=== PATIENT | female | born 1980 | race Caucasian/White ===

== ENCOUNTER 2019-12-31 07:53 | Outpatient (CLI) | payer OTHER, SELFPAY ==
--- NOTE | ~2019-12-31 | PE_ITS ---
EXAMINATION: PET skull to mid thigh DATE: 12/31/2019 10:32 INDICATION: Hodgkin's lymphoma of lymph nodes of neck. TECHNIQUE: Blood glucose level was 93 mg/dL. 8.987 mCi of 18-fluorodeoxyglucose (18-FDG) was administ ered i.v. Low dose computed tomography (CT) images were acquired from the base of the brain to the pr oximal thighs for attenuation correction and anatomic localization. Automated exposure control was em ployed. Dose-length product (DLP) was 871 mGy-cm. Positron emission tomography (PET) images were acqu ired in the same distribution. COMPARISON: PET CT 07/16/2019, chest CT 09/17/2019 FINDINGS: Head/neck: There is increased activity in the oral cavity, oropharynx, major salivary glands, and kary ttis without CT correlate, likely physiologic. There is a 17 x 13 mm left supraclavicular node withou t increased activity that measured 17 x 14 mm on 09/17/19. Chest: There is no pneumonia or pleural effusion. The heart size is normal. No pericardial effusion. There is lymphadenopathy in the superior mediastinum. Right example, a 3.8 x 2.0 cm jude mass demons trates maximum SUV of 2.5 and previously measured 3.7 x 1.5 cm. Mediastinal blood pool maximum SUV is 2.8. Abdomen/pelvis/proximal thighs: Liver maximum SUV is 3.6. There is diffuse hepatic steatosis. There a re changes of cholecystectomy. The spleen, pancreas, adrenal glands, and kidneys are normal. There ar e no dilated loops of bowel. The appendix is normal. There are no pathologically enlarged lymph nodes . There is no free intraperitoneal fluid. There is no osseous malignancy. IMPRESSION: 1. Mediastinal and left supraclavicular lymphadenopathy, stable in size from 09/17/2019, consistent w ith lymphoma (Deauville score 2). Reviewed, dictated and finalized at location A. [facility] IMPRESSION: 1. Mediastinal and left supraclavicular lymphadenopathy, stable in size from , consistent with lymphoma (Deauville score 2).
[2019-12-31 08:22] LABS: Glucose Point of Care 93 (65-105)
== END 2019-12-31 07:54 | disposition home or self-care (01) ==
LOC: ANHIMG 08:00
PROVIDERS: Visit Provider Internal Medicine Hematology & Oncology
DX: C81.71 Other Hodgkin lymphoma, lymph nodes of head, face, and neck (principal); R59.0 Localized enlarged lymph nodes
CPT/HCPCS: 78815; A9552

== ENCOUNTER 2020-01-07 11:20 | Outpatient (CLI) | payer OTHER, SELFPAY ==
[2020-01-07 11:42] LABS: Basophils Absolute Auto 0.1 K/mm3 (0.0-0.1); Basophils Percent Auto 0.5 % (0.2-1.2); Eosinophils Absolute Auto 0.2 K/mm3 (0-0.3); Eosinophils Percent Auto 1.9 % (0-4.4); Hematocrit 40.6 % (37.0-47.0); Hemoglobin 13.1 g/dL (12.0-15.0); Immature Granulocyte Absolute 0.02 K/mm3 (0.00-0.031); Immature Granulocyte Percent A 0.2 % (0-0.5); Lymphocytes Absolute Auto 2.88 K/mm3 (0.9-3.2); Lymphocytes Percent Auto 30.4 % (18.3-44.2); Mean Corpuscular HGB Conc 32.3 g/dl (32-36); Mean Corpuscular Hemoglobin 30.3 pg (26-34); Mean Corpuscular Volume 93.8 fl (80-100); Mean Platelet Volume 8.6 fl (7.4-10.4); Monocytes Absolute Auto 0.6 K/mm3 (0.1-0.6); Monocytes Percent Auto 6.7 % (2.6-8.5); Neutrophils Absolute Auto 5.7 K/mm3 (1.3-6.7); Neutrophils Percent Auto 60.3 % (45.5-73.1); Platelet Count Result 305 k/mm3 (150-375); Red Blood Count 4.33 M/mm3 (4.2-5.4); Red Cell Distribution Width 14.6 % (11.5-14.5); White Blood Count 9.5 K/mm3 (4.5-10.0)
[2020-01-07 11:46] LABS: Blood Urea Nitrogen 11 mg/dL (8-26); Carbon Dioxide 25 mmol/L (22-30); Chloride 104 mmol/L (98-109); Estimated Glomerular Filt Rate > 60; Glucose 106 mg/dL (70-105); Sodium 139 mmol/L (138-146)
[2020-01-07 16:47] LABS: Alanine Aminotransferase 25 U/L (4-35); Alkaline Phosphatase 107 U/L (38-126); Aspartate Amino Transferase 23 U/L (14-36); Bilirubin,Total 0.3 mg/dL (0.2-1.3); Blood Urea Nitrogen 12 mg/dL (7-17); Calcium 9.3 mg/dL (8.4-10.2); Carbon Dioxide 23 mmol/L (22-30); Chloride 105 mmol/L (98-107); Estimated Glomerular Filt Rate > 60; Glucose 104 mg/dL (65-105); Lactate Dehydrogenase 215 U/L (313-618); Potassium 4.2 mmol/L (3.4-5.0); Sodium 138 mmol/L (137-145)
== END 2020-01-07 11:21 | disposition home or self-care (01) ==
LOC: ANHLAB 11:22
PROVIDERS: Visit Provider Internal Medicine Hematology & Oncology
DX: C81.71 Other Hodgkin lymphoma, lymph nodes of head, face, and neck (principal)
CPT/HCPCS: 36415; 80048; 80053; 83615; 85025

== ENCOUNTER 2020-02-03 20:04 | Emergency (ER) | payer OTHER, SELFPAY ==
[2020-02-03 20:06] VITALS: BP 140/82; PULSE 107; RESP 18; TEMP 36.3; O2SAT 100
--- NOTE | 2020-02-03 20:26 | ED.DIZZY ---
HPI - Dizziness General Chief Complaint: Dizziness Stated Complaint: dizziness, n/v, hot flashes Time Seen by Provider: 02/03/20 20:08 Source: patient Mode of arrival: ambulatory Limitations: no limitations History of Present Illness HPI Narrative: Patient is a 39 year old female who presents to the emergency department with complaints of dizziness that started at 2AM. Patient states that her dizziness feels like the room is spinning and she gets nauseas when she gets out of bed. Patient has been sleeping all day and in bed besides going to the bathroom. She notes that she has Zofran at home but she did not take it. Patient reports a 3/10 rt sided and frontal headache. She has never had this dizziness before. Patient notes that she gets migraines since she started chemo for her Hodgkins Lymphoma. She denies vomiting, cough, cold, fever, or diarrhea. Patient has a history of Hodgkins Lymphoma and her last chemo was a year ago. She smokes 1/2 pack of cigarettes a day. She was only able to have a cigarette today. She denies smoking marijuana or drinking alcohol. Patient denies a chance of She is in the emergency department with her boyfriend. Patient works at [employer]. MD elicited complaint: dizziness Onset (ago): hour(s) (18) Timing: sudden onset Description: room spinning History of similar symptoms: No Exacerbating factors: movement/ambulation Relieving factors: remaining still and sleep Associated symptoms: nausea and other (headache) Related Data Home Medications Medication Instructions Recorded Confirmed aspirin 325 mg PO DAILY 09/17/19 10/04/19 Allergies Allergy/AdvReac Type Severity Reaction Status Date / Time Penicillins Allergy Severe Anaphylaxis Verified 09/17/19 09:51 cefazolin Allergy Intermediate Vomiting Verified 09/17/19 09:51 Review of Systems Review of Systems: All systems reviewed & are unremarkable except as noted in HPI and below Constitutional: Constitutional: Denies fever(s) Respiratory: Respiratory: Denies cough Gastrointestinal: Gastrointestinal: Denies diarrhea, Reports nausea and Denies vomiting Neurologic: Reports dizziness and Reports headache(s) [facility] Past Medical History Medical History Anxiety Arthritis Clavicle fracture GERD (gastroesophageal reflux disease) Hodgkin lymphoma (~03/2019) Kidney stones Right arm fracture Surgical History Surgical History H/O section H/O tubal ligation History of arthroplasty of left knee Hx of cholecystectomy Social History Social History (Updated 02/03/20 @ 20:46 by Angela Allan) Smoking packs per day: 0.5 Smoking cigarettes per day: 10.0 Smoking status: Current every day smoker Alcohol intake: never Substance use: never Living arrangements: with family Occupation/Education: occupation Additional occupation/education comments: [employer] Gender identity (if verbalized by the patient): Female Exam Const: General: healthy appearing Orientation/consciousness: patient oriented x3 (alert) HENMT: Mouth: Yes dry mucous membranes Eyes: EOM: No Nystagmus present Resp: Effort & Inspection: normal respiratory effort Auscultation: clear to auscultation bilaterally and no wheezes Cardio: Rate: regular rate Rhythm: regular rhythm Heart sounds: no murmurs GI: Inspection: normal to inspection GI Palp: No abdominal tenderness Skin: General skin exam: other (hyper pigmentation to face) Neuro: General: patient oriented x3 (alert) Extrem: General: normal to inspection Course Reevaluation(s) Reevaluation #1: Patient is feeling better but she vomited so ice chips are being ordered. Date: 02/03/20 Time: 20:51 Reevaluation #2: Patient is sleeping in the bed. Date: 02/03/20 Time: 21:44 Reevaluation #3: Woke patient up. She is entirely better with 2 liters of fluids. Date: 02/03/20 Time: 22:04 Vit
[2020-02-03] MEDS: SODIUM CHLORIDE 0.9% IV 1,000 ML 999 ML IV CONT ×2 (20:36→21:23)
[2020-02-03] MEDS: METOCLOPRAMIDE HCL INJ 10 MG/2 ML VIAL IV PUSH (20:36)
[2020-02-03 21:28] VITALS: BP 119/87; PULSE 64; RESP 15; O2SAT 100
[2020-02-03 22:44] VITALS: BP 102/65; PULSE 98; RESP 17; TEMP 36.6; O2SAT 100
== END 2020-02-03 22:46 | disposition home or self-care (01) ==
PROVIDERS: Emergency Provider Emergency Medicine
DX: R42 Dizziness and giddiness (principal); R11.10 Vomiting, unspecified; G43.909 Migraine, unspecified, not intractable, without status migrainosus; Z85.71 Personal history of Hodgkin lymphoma; Z92.21 Personal history of antineoplastic chemotherapy; F17.210 Nicotine dependence, cigarettes, uncomplicated; M19.90 Unspecified osteoarthritis, unspecified site; K21.9 Gastro-esophageal reflux disease without esophagitis; Z79.82 Long term (current) use of aspirin
CPT/HCPCS: 96361; 96374; 96375; 99284; J1200; J2765; J7030

== ENCOUNTER 2020-04-15 12:42 | Emergency (ER) | payer OTHER, SELFPAY ==
--- NOTE | ~2020-04-15 | XR_ITS ---
EXAMINATION: XR lumbar spine 2-3V DATE: 04/15/2020 13:46 INDICATION: Low back pain. TECHNIQUE: 3 views of lumbar spine were obtained. COMPARISON: Lumbar spine radiographs 07/17/2014 FINDINGS: There is 4 degrees dextrocurvature of thoracolumbar spine. Vertebral body heights and inter vertebral disc heights are normal. There are endplate osteophytes at L3-L4 and L4-L5. The facet joint s are unremarkable. Surgical clips in the right upper quadrant are likely from cholecystectomy. IMPRESSION: 1. Mild lumbar spondylosis. Reviewed, dictated and finalized at location A. IMPRESSION: 1. Mild lumbar spondylosis.
[2020-04-15 12:56] VITALS: BP 126/80; PULSE 102; RESP 20; TEMP 36.5; O2SAT 99
--- NOTE | 2020-04-15 13:21 | ED.BACK ---
HPI - Back Pain/Injury General Chief Complaint: Back Pain/Injury Stated Complaint: LBP X1D Time Seen by Provider: 04/15/20 12:57 Source: patient Mode of arrival: ambulatory Limitations: no limitations History of Present Illness HPI Narrative: This is a 39-year-old female that presents the emergency department for low back pain since injury yesterday. Reports she was lifting something heavy and felt a pop in her back. Reports since she has had right-sided low back pain. Worse with movement and relieved with rest. Reports she takes a Flexeril last night with little relief. Denies saddle anesthesia, or bowel/bladder incontinence. Related Data Home Medications Medication Instructions Recorded Confirmed aspirin 325 mg PO DAILY 09/17/19 10/04/19 Allergies Allergy/AdvReac Type Severity Reaction Status Date / Time Penicillins Allergy Severe Anaphylaxis Verified 04/15/20 13:01 cefazolin Allergy Intermediate Vomiting Verified 04/15/20 13:01 Review of Systems Review of Systems: Narrative: CONSTITUTIONAL: Denies fever MUSCULOSKELETAL: Reports back pain, joint pain, and myalgia. NEUROLOGIC: Denies numbness, or weakness. All systems reviewed & are unremarkable except as noted in HPI and below PMFSH Social History Social History (Updated 02/03/20 @ 20:46 by Angela Allan) Smoking packs per day: 0.5 Smoking cigarettes per day: 10.0 Smoking status: Current every day smoker Alcohol intake: never Substance use: never Additional occupation/education comments: [employer] Gender identity (if verbalized by the patient): Male Exam Narrative: Exam Narrative: GENERAL: Well-appearing, well-nourished, and in no acute distress. HEAD: Normocephalic, atraumatic. EYES: EOMI. CHEST: Clear to auscultation. No respiratory distress. No wheezes rales or rhonchi HEART: Regular rate and rhythm. No murmur heard. Normal peripheral pulses. BACK: No midline spinal tenderness. Tender to palpation of the right paraspinal lumbar musculature EXTREMITIES: Normal range of motion. No edema. Strength equal in bilateral lower extremities (5/5). Normal patellar reflexes bilaterally SKIN: Warm, dry, no rash. NEURO: No focal deficits. Alert and oriented x3. Normal gait PSYCH: Normal mood and affect Course Vital Signs Vital signs: Vital Signs Temperature 97.7 F 04/15/20 12:56 Pulse Rate 102 H 04/15/20 12:56 Respiratory Rate 20 04/15/20 12:56 Blood Pressure 126/80 04/15/20 12:56 Pulse Oximetry 99 04/15/20 12:56 Temperature 97.7 F 04/15/20 12:56 Pulse Rate 102 H 04/15/20 12:56 Respiratory Rate 20 04/15/20 12:56 Blood Pressure 126/80 04/15/20 12:56 Pulse Oximetry 99 04/15/20 12:56 MDM - Back Pain/Injury MDM Narrative Medical decision making narrative: Patient presents the emergency department for low back pain after an injury yesterday. She is afebrile and nontoxic-appearing. Patient is neurologically intact. No midline spinal tenderness. X-ray of the lumbar spine shows mild lumbar spondylosis. Patient updated on case findings. She was given a dose of Tylenol and Valium with improvement. Patient was instructed on care of muscle strain. She is to follow-up with primary care doctor. She was given warnings to return to the ER Imaging Data Radiologist's impression: ITS Impressions Lumbar Spine X-Ray 04/15/20 13:47 IMPRESSION: 1. Mild lumbar spondylosis. Critical Care Time Critical Care Time Critical Care Time: No Discharge Plan Discharge Clinical Impression: Strain of lumbar region Qualifiers: Encounter type: initial encounter Qualified Code(s): S39.012A - Strain of muscle, fascia and tendon of lower back, initial encounter Patient Disposition: Home, Self-Care Condition: Stable Instructions: Back Pain (ED) Additional Instructions: Return to the ER if you experience weakness, numbness, bowel/bladder incontinence, or any other symptoms that are concerning to
[2020-04-15] MEDS: ACETAMINOPHEN 500 MG TABLET 1000 MG PO (13:50)
== END 2020-04-15 15:50 | disposition home or self-care (01) ==
PROVIDERS: Emergency Provider Emergency Medicine
DX: S39.012A Strain of muscle, fascia and tendon of lower back, initial encounter (principal); F17.210 Nicotine dependence, cigarettes, uncomplicated; X50.0XXA Overexertion from strenuous movement or load, initial encounter; Z79.82 Long term (current) use of aspirin
CPT/HCPCS: 72100; 96372; 99283; A9270; J3360

== ENCOUNTER 2020-08-24 13:17 | Outpatient (CLI) | payer OTHER, SELFPAY ==
[2020-08-24 13:44] LABS: Basophils Percent Auto 0.4 % (0.2-1.2); Eosinophils Absolute Auto 0.1 K/mm3 (0-0.3); Eosinophils Percent Auto 1.3 % (0-4.4); Hematocrit 42.4 % (37.0-47.0); Hemoglobin 13.6 g/dL (12.0-15.0); Immature Granulocyte Absolute 0.03 K/mm3 (0.00-0.031); Immature Granulocyte Percent A 0.3 % (0-0.5); Lymphocytes Absolute Auto 3.27 K/mm3 (0.9-3.2); Lymphocytes Percent Auto 29.9 % (18.3-44.2); Mean Corpuscular HGB Conc 32.1 g/dl (32-36); Mean Corpuscular Hemoglobin 30.3 pg (26-34); Mean Corpuscular Volume 94.4 fl (80-100); Mean Platelet Volume 8.3 fl (7.4-10.4); Monocytes Absolute Auto 0.6 K/mm3 (0.1-0.6); Monocytes Percent Auto 5.4 % (2.6-8.5); Neutrophils Absolute Auto 6.9 K/mm3 (1.3-6.7); Neutrophils Percent Auto 62.7 % (45.5-73.1); Platelet Count Result 323 k/mm3 (150-375); Red Blood Count 4.49 M/mm3 (4.2-5.4); Red Cell Distribution Width 13.6 % (11.5-14.5); White Blood Count 10.9 K/mm3 (4.5-10.0)
[2020-08-24 13:48] LABS: Blood Urea Nitrogen 11 mg/dL (8-26); Carbon Dioxide 25 mmol/L (22-30); Chloride 101 mmol/L (98-109); Estimated Glomerular Filt Rate > 60; Glucose 101 mg/dL (70-105); Potassium 3.8 mmol/L (3.5-4.9); Sodium 139 mmol/L (138-146)
[2020-08-24 15:30] LABS: Alanine Aminotransferase 18 U/L (4-35); Alkaline Phosphatase 110 U/L (38-126); Anion Gap 9 mmol/L (8-16); Aspartate Amino Transferase 18 U/L (14-36); Bilirubin,Total 0.3 mg/dL (0.2-1.3); Blood Urea Nitrogen 12 mg/dL (7-17); Calcium 9.7 mg/dL (8.4-10.2); Carbon Dioxide 28 mmol/L (22-30); Chloride 101 mmol/L (98-107); Estimated Glomerular Filt Rate > 60; Glucose 103 mg/dL (65-105); Sodium 138 mmol/L (137-145)
[2020-08-24 16:32] LABS: Lactate Dehydrogenase < 200 U/L (313-618)
== END 2020-08-24 13:18 | disposition home or self-care (01) ==
LOC: ANHLAB 13:18
PROVIDERS: Visit Provider Internal Medicine Hematology & Oncology
DX: C81.71 Other Hodgkin lymphoma, lymph nodes of head, face, and neck (principal)
CPT/HCPCS: 36415; 80048; 80053; 83615; 85025

== ENCOUNTER 2020-09-07 17:22 | Emergency (ER) | payer OTHER, SELFPAY ==
--- NOTE | 2020-09-07 17:24 | ED.GENADULT ---
HPI - General Adult General Chief complaint: Skin/Abscess/Foreign Body Stated complaint: Bee Sting Time Seen by Provider: 09/07/20 17:24 Source: patient Mode of arrival: ambulatory Limitations: no limitations History of Present Illness HPI narrative: 39-year-old female patient presents to the [facility] with complaints of a bee sting to the right wrist. Patient states it happened earlier today. Patient states she did take Benadryl but states is still very tender, warm to the touch and is painful with movement to the wrist. Patient recently just finished chemo at the end of July for non-Hodgkin's lymphoma. Related Data Home Medications Medication Instructions Recorded Confirmed aspirin 325 mg PO DAILY 09/17/19 09/07/20 Allergies Allergy/AdvReac Type Severity Reaction Status Date / Time Penicillins Allergy Severe Anaphylaxis Verified 04/15/20 13:01 cefazolin Allergy Intermediate Vomiting Verified 04/15/20 13:01 clindamycin Allergy Anaphylaxis Verified 09/07/20 17:39 Review of Systems Review of Systems: Narrative: CONSTITUTIONAL: Denies fever, chills, or sweats. EYES: Denies visual changes, redness, or discharge. ENT: Denies rhinorrhea, congestion, sore throat, or otalgia. CARDIOVASCULAR: Denies chest pain, palpitations, or edema. RESPIRATORY: Denies cough or dyspnea. GASTROINTESTINAL: Denies abdominal pain, nausea, vomiting, or diarrhea. GENITOURINARY: Denies dysuria or hematuria. SKIN: Denies rash or itching. Positive bee sting to right wrist MUSCULOSKELETAL: Denies back pain, joint pain, or myalgia. NEUROLOGIC: Denies headache, numbness, or weakness. PSYCHIATRIC: Denies anxiety or depression. [facility] Past Medical History Medical History (Updated 09/07/20 @ 17:54 by JOVANNA Bullard) Anxiety Arthritis Clavicle fracture GERD (gastroesophageal reflux disease) Hodgkin lymphoma (~03/2019) Kidney stones Right arm fracture Surgical History Surgical History H/O section H/O tubal ligation History of arthroplasty of left knee Hx of cholecystectomy Family History Family History Other Cerebrovascular accident Diabetes mellitus Family history of alcoholism Family history of arthritis Family history of cardiovascular disease Family history of elevated blood lipids Family history of malignant neoplasm of male breast Family history of malignant neoplasm of ovary Hypertension Social History Social History Smoking packs per day: 0.5 Smoking cigarettes per day: 10.0 Smoking status: Current every day smoker Alcohol intake: never Substance use: never Additional occupation/education comments: [employer] Gender identity (if verbalized by the patient): Male Comments At the time of my signature I agree with nursing past medical history, surgical, social, and family history. There is no relevant family history pertinent to the presenting complaint. Exam Narrative: Exam Narrative: GENERAL: Well-appearing, well-nourished, and in no acute distress. HEAD: Normocephalic, atraumatic. EYES: PERRLA and EOMI. ENT: Nares clear, no rhinorrhea or epistaxis. Mucous membranes moist. NECK: Supple. No lymphadenopathy CHEST: Clear to auscultation. No respiratory distress. HEART: Regular rate and rhythm. No murmur heard. Normal peripheral pulses. ABDOMEN: Soft, nontender, nondistended, normal active bowel sounds. EXTREMITIES: Normal range of motion. No edema. SKIN: Warm, dry, no rash. Patient has approximately 7 cm reddened area to the ulnar side of the right breast with erythema, swelling and warmth to the touch. No open wounds or discharge noted. NEURO: No focal deficits. Alert and oriented x3. Course Vital Signs Vital signs: Vital Signs Temperature 37.1 C 09/07/20 17:32 Pulse Rate 112 H 09/07/20 17:32 Respiratory Rate
[2020-09-07 17:32] VITALS: BP 115/81; PULSE 112; RESP 18; TEMP 37.1; O2SAT 99
[2020-09-07 17:34] VITALS: BP 115/81; PULSE 112; RESP 18; TEMP 37.1; O2SAT 99
== END 2020-09-07 18:01 | disposition home or self-care (01) ==
PROVIDERS: Emergency Provider Nurse Practitioner Family
DX: L03.113 Cellulitis of right upper limb (principal); F17.210 Nicotine dependence, cigarettes, uncomplicated; F41.9 Anxiety disorder, unspecified; M19.90 Unspecified osteoarthritis, unspecified site; K21.9 Gastro-esophageal reflux disease without esophagitis; C85.90 Non-Hodgkin lymphoma, unspecified, unspecified site
CPT/HCPCS: 99213; G0463

== ENCOUNTER 2020-12-18 16:18 | Outpatient (CLI) | payer OTHER, SELFPAY ==
[2020-12-18 16:49] LABS: Basophils Percent Auto 0.4 % (0.2-1.2); Eosinophils Absolute Auto 0.1 K/mm3 (0-0.3); Eosinophils Percent Auto 1.5 % (0-4.4); Hematocrit 40.2 % (37.0-47.0); Immature Granulocyte Absolute 0.02 K/mm3 (0.00-0.031); Immature Granulocyte Percent A 0.2 % (0-0.5); Lymphocytes Absolute Auto 2.96 K/mm3 (0.9-3.2); Mean Corpuscular HGB Conc 32.3 g/dl (32-36); Mean Corpuscular Hemoglobin 30.1 pg (26-34); Mean Corpuscular Volume 93.1 fl (80-100); Mean Platelet Volume 8.4 fl (7.4-10.4); Monocytes Absolute Auto 0.5 K/mm3 (0.1-0.6); Monocytes Percent Auto 5.5 % (2.6-8.5); Neutrophils Absolute Auto 5.9 K/mm3 (1.3-6.7); Neutrophils Percent Auto 61.4 % (45.5-73.1); Platelet Count Result 289 k/mm3 (150-375); Red Blood Count 4.32 M/mm3 (4.2-5.4); Red Cell Distribution Width 13.5 % (11.5-14.5); White Blood Count 9.6 K/mm3 (4.5-10.0)
[2020-12-18 17:03] LABS: Alanine Aminotransferase 24 U/L (4-35); Albumin Level 3.9 g/dL (3.5-5.1); Alkaline Phosphatase 94 U/L (38-126); Anion Gap 5 mmol/L (8-16); Aspartate Amino Transferase 20 U/L (14-36); Bilirubin,Total 0.2 mg/dL (0.2-1.3); Blood Urea Nitrogen 8 mg/dL (7-17); Carbon Dioxide 27 mmol/L (22-30); Chloride 106 mmol/L (98-107); Estimated Glomerular Filt Rate > 60; Glucose 108 mg/dL (65-105); Potassium 3.7 mmol/L (3.4-5.0); Sodium 138 mmol/L (137-145)
[2020-12-23 06:15] LABS: LH 21.7 mIU/mL (***)
== END 2020-12-18 16:19 | disposition home or self-care (01) ==
LOC: ANHLAB 16:20
PROVIDERS: Visit Provider Internal Medicine Hematology & Oncology
DX: C81.71 Other Hodgkin lymphoma, lymph nodes of head, face, and neck (principal)
CPT/HCPCS: 36415; 80053; 83002; 85025

== ENCOUNTER 2021-02-04 14:17 | Outpatient (CLI) | payer OTHER, SELFPAY ==
[2021-02-04 14:34] LABS: Basophils Absolute Auto 0.1 K/mm3 (0.0-0.1); Basophils Percent Auto 0.6 % (0.2-1.2); Eosinophils Absolute Auto 0.2 K/mm3 (0-0.3); Eosinophils Percent Auto 1.7 % (0-4.4); Hematocrit 41.6 % (37.0-47.0); Hemoglobin 13.4 g/dL (12.0-15.0); Immature Granulocyte Absolute 0.02 K/mm3 (0.00-0.031); Immature Granulocyte Percent A 0.2 % (0-0.5); Lymphocytes Absolute Auto 3.58 K/mm3 (0.9-3.2); Lymphocytes Percent Auto 36.5 % (18.3-44.2); Mean Corpuscular HGB Conc 32.2 g/dl (32-36); Mean Corpuscular Hemoglobin 29.7 pg (26-34); Mean Corpuscular Volume 92.2 fl (80-100); Mean Platelet Volume 8.4 fl (7.4-10.4); Monocytes Absolute Auto 0.6 K/mm3 (0.1-0.6); Monocytes Percent Auto 6.5 % (2.6-8.5); Neutrophils Absolute Auto 5.4 K/mm3 (1.3-6.7); Neutrophils Percent Auto 54.5 % (45.5-73.1); Platelet Count Result 321 k/mm3 (150-375); Red Blood Count 4.51 M/mm3 (4.2-5.4); White Blood Count 9.8 K/mm3 (4.5-10.0)
[2021-02-04 14:39] LABS: Atypical Lymphocytes Present; Platelet Estimate Adequate (Adequate)
[2021-02-04 15:02] LABS: Alanine Aminotransferase 19 U/L (4-35); Albumin Level 4.1 g/dL (3.5-5.1); Alkaline Phosphatase 96 U/L (38-126); Anion Gap 8 mmol/L (8-16); Aspartate Amino Transferase 18 U/L (14-36); Bilirubin,Total 0.2 mg/dL (0.2-1.3); Blood Urea Nitrogen 9 mg/dL (7-17); Calcium 9.1 mg/dL (8.4-10.2); Carbon Dioxide 26 mmol/L (22-30); Chloride 105 mmol/L (98-107); Estimated Glomerular Filt Rate > 60; Glucose 85 mg/dL (65-105); Potassium 3.9 mmol/L (3.4-5.0); Sodium 139 mmol/L (137-145)
[2021-02-04 15:08] LABS: D Dimer 0.33 ug/mL (<0.48)
[2021-02-04 15:39] LABS: Lactate Dehydrogenase < 200 U/L (313-618)
== END 2021-02-04 14:18 | disposition home or self-care (01) ==
LOC: ANHLAB 14:19
PROVIDERS: Visit Provider Internal Medicine Hematology & Oncology
DX: C81.71 Other Hodgkin lymphoma, lymph nodes of head, face, and neck (principal)
CPT/HCPCS: 36415; 80053; 83615; 85025; 85380

== ENCOUNTER 2021-02-08 14:13 | Outpatient (CLI) | payer OTHER, SELFPAY ==
--- NOTE | ~2021-02-08 | CT_ITS ---
EXAMINATION: CT soft tissue neck w con DATE: 02/08/2021 14:48 INDICATION: Hodgkin's lymphoma. TECHNIQUE: Computed tomography (CT) of the neck was performed with 100 mL Omnipaque-350 intravenous c ontrast. Automated exposure control and iterative reconstruction technique were employed. The dose-le ngth product was 499.55 mGy-cm. COMPARISON: PET CT 12/31/2019 FINDINGS: There are enlarged mediastinal and left supraclavicular lymph nodes. For example, a 14 x 11 mm left supraclavicular lymph node previously measured 18 x 13 mm. A 17 x 15 mm prevascular node pre viously measured 22 x 19 mm. The cervical carotid arteries are normal. The paranasal sinuses are ben r. The mastoid air cells are normal. There is mild cervical spondylosis. IMPRESSION: 1. Mediastinal and left supraclavicular lymphadenopathy with interval improvement, consistent with ly mphoma. Reviewed, dictated and finalized at location A. IMPRESSION: 1. Mediastinal and left supraclavicular lymphadenopathy with interval improveme nt, consistent with lymphoma.
--- NOTE | ~2021-02-08 | CT_ITS ---
EXAMINATION: CTA chest PE protocol DATE: 02/08/2021 14:47 INDICATION: Shortness of breath. Hodgkin's lymphoma. TECHNIQUE: Computed tomography angiography (CTA) of the chest was performed with 100 mL Omnipaque-350 intravenous contrast timed to evaluate the pulmonary arteries. Coronal maximum intensity projection 3D-reconstructions were created by the technologist. Automated exposure control and iterative reconst ruction technique were employed. Exam dose: 532.19 mGy-cm total exam DLP. COMPARISON: None. FINDINGS: There is limited opacification of the pulmonary arteries. No apparent central pulmonary emb olism is identified. No thoracic aortic aneurysm or dissection. Normal heart size. Up to 1.5 x 2 cm left superior mediastinal lymphadenopathy. The lungs are clear of infiltrate or consolidation. No suspicious pulmonary mass lesion. Small sliding hiatal hernia. Status post cholecystectomy. IMPRESSION: Mild left superior mediastinal lymphadenopathy No central pulmonary embolism identified, but less than optimal contrast opacification of pulmonary a rteries. Reviewed, dictated and finalized at Location A. Reviewed, dictated and finalized at location A. IMPRESSION: Mild left superior mediastinal lymphadenopathy No central pulmonary embolism identified, but less than optimal contrast opacif ication of pulmonary arteries.
== END 2021-02-08 14:14 | disposition home or self-care (01) ==
PROVIDERS: Visit Provider Internal Medicine Hematology & Oncology
DX: R06.02 Shortness of breath (principal); C81.71 Other Hodgkin lymphoma, lymph nodes of head, face, and neck
CPT/HCPCS: 70491; 71275; Q9967

== ENCOUNTER 2021-05-06 15:04 | Outpatient (CLI) | payer OTHER, SELFPAY ==
[2021-05-06 15:18] LABS: Basophils Percent Auto 0.4 % (0.2-1.2); Eosinophils Absolute Auto 0.2 K/mm3 (0-0.3); Eosinophils Percent Auto 1.6 % (0-4.4); Hematocrit 38.9 % (37.0-47.0); Hemoglobin 12.4 g/dL (12.0-15.0); Immature Granulocyte Absolute 0.05 K/mm3 (0.00-0.031); Immature Granulocyte Percent A 0.5 % (0-0.5); Lymphocytes Percent Auto 30.4 % (18.3-44.2); Mean Corpuscular HGB Conc 31.9 g/dl (32-36); Mean Corpuscular Hemoglobin 29.7 pg (26-34); Mean Corpuscular Volume 93.1 fl (80-100); Mean Platelet Volume 8.5 fl (7.4-10.4); Monocytes Absolute Auto 0.5 K/mm3 (0.1-0.6); Monocytes Percent Auto 5.2 % (2.6-8.5); Neutrophils Absolute Auto 6.1 K/mm3 (1.3-6.7); Neutrophils Percent Auto 61.9 % (45.5-73.1); Platelet Count Result 281 k/mm3 (150-375); Red Blood Count 4.18 M/mm3 (4.2-5.4); White Blood Count 9.9 K/mm3 (4.5-10.0)
[2021-05-06 15:21] LABS: Blood Urea Nitrogen 9 mg/dL (8-26); Carbon Dioxide 25 mmol/L (22-30); Chloride 103 mmol/L (98-109); Estimated Glomerular Filt Rate > 60; Glucose 114 mg/dL (70-105); Potassium 3.5 mmol/L (3.5-4.9); Sodium 142 mmol/L (138-146)
[2021-05-06 16:38] LABS: Alanine Aminotransferase 27 U/L (4-35); Albumin Level 3.8 g/dL (3.5-5.1); Alkaline Phosphatase 85 U/L (38-126); Anion Gap 11 mmol/L (8-16); Aspartate Amino Transferase 23 U/L (14-36); Bilirubin,Total 0.4 mg/dL (0.2-1.3); Blood Urea Nitrogen 10 mg/dL (7-17); Calcium 9.4 mg/dL (8.4-10.2); Carbon Dioxide 25 mmol/L (22-30); Chloride 103 mmol/L (98-107); Estimated Glomerular Filt Rate > 60; Glucose 105 mg/dL (65-105); Potassium 3.8 mmol/L (3.4-5.0); Sodium 139 mmol/L (137-145)
[2021-05-06 22:34] LABS: Lactate Dehydrogenase < 200 U/L (313-618)
== END 2021-05-06 15:05 | disposition home or self-care (01) ==
LOC: ANHLAB 15:06
PROVIDERS: Visit Provider Internal Medicine Hematology & Oncology
DX: C81.71 Other Hodgkin lymphoma, lymph nodes of head, face, and neck (principal)
CPT/HCPCS: 36415; 80048; 80053; 83615; 85025

== ENCOUNTER 2021-11-15 15:22 | Outpatient (CLI) | payer OTHER, SELFPAY ==
[2021-11-15 15:35] LABS: Basophils Absolute Auto 0.1 K/mm3 (0.0-0.1); Basophils Percent Auto 0.4 % (0.2-1.2); Eosinophils Absolute Auto 0.1 K/mm3 (0-0.3); Eosinophils Percent Auto 1.2 % (0-4.4); Hematocrit 43.1 % (37.0-47.0); Hemoglobin 13.6 g/dL (12.0-15.0); Immature Granulocyte Absolute 0.03 K/mm3 (0.00-0.031); Immature Granulocyte Percent A 0.2 % (0-0.5); Lymphocytes Absolute Auto 3.62 K/mm3 (0.9-3.2); Lymphocytes Percent Auto 29.9 % (18.3-44.2); Mean Corpuscular HGB Conc 31.6 g/dl (32-36); Mean Corpuscular Hemoglobin 30.4 pg (26-34); Mean Corpuscular Volume 96.2 fl (80-100); Mean Platelet Volume 8.7 fl (7.4-10.4); Monocytes Absolute Auto 0.7 K/mm3 (0.1-0.6); Monocytes Percent Auto 5.4 % (2.6-8.5); Neutrophils Absolute Auto 7.6 K/mm3 (1.3-6.7); Neutrophils Percent Auto 62.9 % (45.5-73.1); Platelet Count Result 284 k/mm3 (150-375); Red Blood Count 4.48 M/mm3 (4.2-5.4); Red Cell Distribution Width 13.8 % (11.5-14.5); White Blood Count 12.1 K/mm3 (4.5-10.0)
[2021-11-15 16:50] LABS: Alanine Aminotransferase 27 U/L (4-35); Alkaline Phosphatase 106 U/L (38-126); Anion Gap 9 mmol/L (8-16); Aspartate Amino Transferase 36 U/L (14-36); Bilirubin,Total 0.4 mg/dL (0.2-1.3); Blood Urea Nitrogen 10 mg/dL (7-17); Calcium 9.3 mg/dL (8.4-10.2); Carbon Dioxide 26 mmol/L (22-30); Chloride 101 mmol/L (98-107); Estimated Glomerular Filt Rate > 60; Glucose 116 mg/dL (65-110); Sodium 136 mmol/L (137-145)
== END 2021-11-15 15:23 | disposition home or self-care (01) ==
PROVIDERS: Visit Provider Internal Medicine Hematology & Oncology
DX: C81.11 Nodular sclerosis Hodgkin lymphoma, lymph nodes of head, face, and neck (principal)
CPT/HCPCS: 36415; 80053; 85025

== ENCOUNTER 2022-01-11 19:34 | Emergency (ER) | payer OTHER, SELFPAY ==
--- NOTE | 2022-01-11 19:40 | ED.BACK ---
HPI - Back Pain/Injury General Chief Complaint: Back Pain/Injury Stated Complaint: Back Pain Time Seen by Provider: 01/11/22 19:44 Source: patient Mode of arrival: ambulatory Limitations: no limitations History of Present Illness HPI Narrative: 41-year-old female presents with complaint of left sided mid back pain that started yesterday morning. Patient denies injury. States that she woke up with the pain and is worse with movement and when taking deep breath. Has been applying ice, heat, taking ibuprofen and taken Tylenol back and body. Works at [employer] lifting, pushing, walking for 8 hours a shift. Ambulatory with steady gait. All systems reviewed and negative except as noted above. Related Data Home Medications Medication Instructions Recorded Confirmed aspirin 325 mg PO DAILY 09/17/19 01/11/22 Allergies Allergy/AdvReac Type Severity Reaction Status Date / Time Penicillins Allergy Severe Anaphylaxis Verified 01/11/22 19:45 cefazolin Allergy Intermediate Vomiting Verified 01/11/22 19:45 clindamycin Allergy Anaphylaxis Verified 01/11/22 19:45 Review of Systems Review of Systems: CONSTITUTIONAL: Denies fever, chills, or sweats. EYES: Denies visual changes, redness, or discharge. ENT: Denies rhinorrhea, congestion, sore throat, or otalgia. CARDIOVASCULAR: Denies chest pain, palpitations, or edema. RESPIRATORY: Denies cough or dyspnea. GASTROINTESTINAL: Denies abdominal pain, nausea, vomiting, or diarrhea. GENITOURINARY: Denies dysuria or hematuria. SKIN: Denies rash or itching. MUSCULOSKELETAL: Reports left-sided mid back pain. Worse with movement. NEUROLOGIC: Denies headache, numbness, or weakness. PSYCHIATRIC: Denies anxiety or depression. All other systems reviewed are negative, except as documented in HPI. [facility] Past Medical History Medical History (Updated 01/11/22 @ 19:52 by Venice Vega NP) Anxiety Arthritis Clavicle fracture GERD (gastroesophageal reflux disease) Hodgkin lymphoma (~03/2019) Kidney stones Right arm fracture Surgical History Surgical History H/O section H/O tubal ligation History of arthroplasty of left knee Hx of cholecystectomy Family History Family History Other Cerebrovascular accident Diabetes mellitus Family history of alcoholism Family history of arthritis Family history of cardiovascular disease Family history of elevated blood lipids Family history of malignant neoplasm of male breast Family history of malignant neoplasm of ovary Hypertension Social History Social History Smoking packs per day: 0.5 Smoking cigarettes per day: 10.0 Smoking status: Current every day smoker Alcohol intake: never Substance use: never Additional occupation/education comments: [employer] Gender identity (if verbalized by the patient): Male Comments At time of signature, agree with nursing past medical, surgical, social and family history. There is no relevant family history pertinent to the presenting complaint. Exam Narrative: GENERAL: This is a well-nourished, well-developed patient, in no apparent distress. HEAD: normocephalic, atraumatic. EYES: PERRL. Sclera clear/white. Vision is grossly intact. EARS: External ears normal, auditory canals clear and without drainage, TMs normal without perforation. Hearing grossly intact. NOSE: External nose normal with no obvious nasal discharge, nares without redness, no rhinorrhea. THROAT: Mucous membranes moist, posterior pharynx clear. NECK: Neck supple, non-tender without lymphadenopathy, masses or thyromegaly. CARDIOVASCULAR: Regular rate and rhythm without murmurs, gallops, or rubs. RESPIRATORY: Clear to auscultation. Breath sounds equal bilaterally. No wheezes, rales, or rhonchi. GASTROINTESTINAL: Abdomen soft, non-tender, nondist
[2022-01-11 19:50] VITALS: BP 125/87; PULSE 111; RESP 20; TEMP 36.4; O2SAT 98
[2022-01-11] MEDS: KETOROLAC (*BKC) 60 MG/2 ML VIAL IM (19:50)
== END 2022-01-11 20:00 | disposition home or self-care (01) ==
PROVIDERS: Emergency Provider Nurse Practitioner Family
DX: M54.6 Pain in thoracic spine (principal); M19.90 Unspecified osteoarthritis, unspecified site; F17.210 Nicotine dependence, cigarettes, uncomplicated; K21.9 Gastro-esophageal reflux disease without esophagitis; Z85.71 Personal history of Hodgkin lymphoma
CPT/HCPCS: 96372; 99213; G0463; J1885

== ENCOUNTER 2022-05-25 12:46 | Outpatient (CLI) | payer OTHER, SELFPAY ==
--- NOTE | ~2022-05-25 | CT_ITS ---
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 TECHNIQUE: Computed tomography (CT) of the neck and chest was performed with 75 mL Omnipaque-300 intr avenous contrast. Automated exposure control and iterative reconstruction technique were employed. Th e dose-length product was 876.86 mGy-cm. COMPARISON: None FINDINGS: NECK CT: Thyroid gland is unremarkable. Submandibular and parotid glands are symmetric. There are scattered normal-sized lymph nodes in the neck, no lymphadenopathy. Slight decrease in size of a previously 1.4 x 1.0 cm left supraclavicular lymph node currently measuring 1.4 x 0.8 cm. The largest more cephalad lymph nodes measure up to 7 mm in short axis diameter in the submental region and 8 mm in maximal di ameter at the upper right jugular chain, both which are unchanged. No masses identified. The vascula ture is patent and normal in caliber. Airway is unremarkable. Orbits are unremarkable. Visualized paranasal sinuses and mastoid aircells are well aerated. No osseous abnormalities. CHEST CT: Mild dependent atelectasis in the bilateral lower lobes. No suspicious pulmonary nodules, pneumonia, pulmonary edema or other pulmonary infiltrates. No pleural effusion. Heart size is normal. No pericar dial effusion. Thoracic aorta is normal in caliber with no dissection. Again seen are couple prevascu lar lymph nodes, the larger and more laterally is unchanged continuing to measure 1.7 x 1.5 cm and th e more medial located between the left common carotid and left subclavian arteries is slightly decrea sed in size, currently measuring 1.4 x 1.2 cm and previously 1.7 x 1.2 cm. No other new, enlarging or pathologically enlarged thoracic lymphadenopathy. Small sliding-type hiatal hernia. Diffuse hepatic steatosis. Mild thoracic spondylosis with chronic mild anterior wedging of a few mid thoracic vertebr al bodies. No suspicious lytic or blastic bone lesions. IMPRESSION: 1. No change to slight decrease in size of mild mediastinal and left clavicular lymphadenopathy consi stent with continued response to treatment of reported Hodgkin's lymphoma. Reviewed, dictated and finalized at location A. IMPRESSION: 1. No change to slight decrease in size of mild mediastinal and left clavicular lymphadenopathy consistent with continued response to treatment of reported Ho dgkin's lymphoma.
== END 2022-05-25 12:47 | disposition home or self-care (01) ==
PROVIDERS: Visit Provider Internal Medicine Hematology & Oncology
DX: C81.11 Nodular sclerosis Hodgkin lymphoma, lymph nodes of head, face, and neck (principal)
CPT/HCPCS: 70491; 71260; Q9967

== ENCOUNTER 2022-09-17 13:51 | Emergency (ER) | payer OTHER, SELFPAY ==
[2022-09-17 15:20] VITALS: BP 123/81; PULSE 108; RESP 12; TEMP 36.3; O2SAT 100
--- NOTE | 2022-09-17 15:43 | ED.GENADULT ---
HPI - General Adult General Chief complaint: Skin/Abscess/Foreign Body Stated complaint: lump on sheen Time Seen by Provider: 09/17/22 15:43 Source: patient Mode of arrival: ambulatory Limitations: no limitations History of Present Illness HPI narrative: 32-year-old female patient presents to the [facility] with complaints of a reddened area to the left lower henry that has been there since yesterday. Patient denies any obvious trauma that she is aware of. Denies any sting or bite that she is aware of. Denies any itching to the area. Patient states it is slightly tender to the touch. Patient states she noticed that she has been getting swelling to her legs more often since her chemo and just wanted to come get checked out. Patient does have history of Hodgkin's lymphoma. No longer taking chemo at this time. Patient states she does wear compression stockings at times but not very good at it. Patient states that she does have history of a PE while she was on chemo. Has been off of blood thinner since 2019. Related Data Home Medications Medication Instructions Recorded Confirmed meclizine 25 mg tablet 25 mg PO BID PRN Vertigo 09/17/22 09/17/22 ondansetron 4 mg disintegrating 4 mg PO Q8H PRN Nausea 09/17/22 09/17/22 tablet Allergies Allergy/AdvReac Type Severity Reaction Status Date / Time Penicillins Allergy Severe Anaphylaxis Verified 09/17/22 15:32 cefazolin Allergy Intermediate Vomiting Verified 09/17/22 15:32 clindamycin Allergy Anaphylaxis Verified 09/17/22 15:32 Review of Systems Review of Systems: CONSTITUTIONAL: Denies fever, chills, or sweats. EYES: Denies visual changes, redness, or discharge. ENT: Denies rhinorrhea, congestion, sore throat, or otalgia. CARDIOVASCULAR: Denies chest pain, palpitations, or edema. RESPIRATORY: Denies cough or dyspnea. GASTROINTESTINAL: Denies abdominal pain, nausea, vomiting, or diarrhea. GENITOURINARY: Denies dysuria or hematuria. SKIN: Denies rash or itching. Positive redness left lower leg x1 day MUSCULOSKELETAL: Denies back pain, joint pain, or myalgia. NEUROLOGIC: Denies headache, numbness, or weakness. PSYCHIATRIC: Denies anxiety or depression. [facility] Past Medical History Medical History (Updated 11/19/22 @ 15:57 by JOVANNA Bullard) Anxiety Arthritis Clavicle fracture GERD (gastroesophageal reflux disease) Hodgkin lymphoma (~03/2019) Kidney stones Right arm fracture Surgical History Surgical History H/O section H/O tubal ligation History of arthroplasty of left knee Hx of cholecystectomy Family History Family History Other Cerebrovascular accident Diabetes mellitus Family history of alcoholism Family history of arthritis Family history of cardiovascular disease Family history of elevated blood lipids Family history of malignant neoplasm of male breast Family history of malignant neoplasm of ovary Hypertension Social History Social History Smoking packs per day: 0.5 Smoking cigarettes per day: 10.0 Smoking status: Current every day smoker Alcohol intake: never Substance use: never Additional occupation/education comments: [employer] Gender identity (if verbalized by the patient): Male Comments At the time of my signature I agree with nursing past medical history, surgical, social, and family history. There is no relevant family history pertinent to the presenting complaint. Exam Narrative: GENERAL: Well-appearing, well-nourished, and in no acute distress. HEAD: Normocephalic, atraumatic. EYES: PERRLA and EOMI. ENT: Nares clear, no rhinorrhea or epistaxis. Mucous membranes moist. NECK: Supple. No lymphadenopathy CHEST: Clear to auscultation. No respiratory distress. HEART: Regular rate and rhythm. No murmur heard. Normal peripheral pulses. ABD
== END 2022-09-17 16:05 | disposition home or self-care (01) ==
PROVIDERS: Emergency Provider Nurse Practitioner Family
DX: S80.12XA Contusion of left lower leg, initial encounter (principal); C81.90 Hodgkin lymphoma, unspecified, unspecified site; X58.XXXA Exposure to other specified factors, initial encounter
CPT/HCPCS: 99212; G0463

== ENCOUNTER 2022-09-20 15:32 | Outpatient (CLI) | payer OTHER, SELFPAY ==
[2022-09-20 15:47] LABS: Basophils Percent Auto 0.4 % (0.2-1.2); Eosinophils Absolute Auto 0.1 K/mm3 (0-0.3); Eosinophils Percent Auto 1.2 % (0-4.4); Hematocrit 40.4 % (37.0-47.0); Immature Granulocyte Absolute 0.04 K/mm3 (0.00-0.031); Immature Granulocyte Percent A 0.4 % (0-0.5); Lymphocytes Absolute Auto 3.95 K/mm3 (0.9-3.2); Mean Corpuscular HGB Conc 32.2 g/dl (32-36); Mean Corpuscular Hemoglobin 30.7 pg (26-34); Mean Corpuscular Volume 95.5 fl (80-100); Mean Platelet Volume 8.4 fl (7.4-10.4); Monocytes Absolute Auto 0.6 K/mm3 (0.1-0.6); Monocytes Percent Auto 5.5 % (2.6-8.5); Neutrophils Absolute Auto 6.2 K/mm3 (1.3-6.7); Neutrophils Percent Auto 56.5 % (45.5-73.1); Platelet Count Result 299 k/mm3 (150-375); Red Blood Count 4.23 M/mm3 (4.2-5.4); Red Cell Distribution Width 13.6 % (11.5-14.5)
[2022-09-20 15:53] LABS: Blood Urea Nitrogen 10 mg/dL (8-26); Carbon Dioxide 27 mmol/L (22-30); Chloride 102 mmol/L (98-109); Estimated Glomerular Filt Rate > 60; Glucose 106 mg/dL (70-105); Ionized Calcium (POC) 1.16 mmol/L (1.11-1.31); Potassium 3.9 mmol/L (3.5-4.9); Sodium 139 mmol/L (138-146)
[2022-09-20 16:54] LABS: Alanine Aminotransferase 27 U/L (6-35); Alkaline Phosphatase 104 U/L (38-126); Anion Gap 11 mmol/L (8-16); Aspartate Amino Transferase 27 U/L (14-36); Bilirubin,Total 0.3 mg/dL (0.2-1.3); Blood Urea Nitrogen 11 mg/dL (7-17); Calcium 8.7 mg/dL (8.4-10.2); Carbon Dioxide 25 mmol/L (22-30); Chloride 103 mmol/L (98-107); Estimated Glomerular Filt Rate > 60; Glucose 108 mg/dL (65-110); Lactate Dehydrogenase 107 U/L (120-246); Potassium 3.9 mmol/L (3.4-5.0); Sodium 139 mmol/L (137-145)
== END 2022-09-20 15:33 | disposition home or self-care (01) ==
LOC: ANHLAB 15:33
PROVIDERS: Visit Provider Internal Medicine Hematology & Oncology
DX: C81.11 Nodular sclerosis Hodgkin lymphoma, lymph nodes of head, face, and neck (principal)
CPT/HCPCS: 36415; 80047; 80053; 83615; 85025

== ENCOUNTER 2022-10-13 13:42 | Outpatient (CLI) | payer OTHER, SELFPAY ==
--- NOTE | ~2022-10-13 | US_ITS ---
EXAMINATION: US venous doppler [facility] DATE: 10/13/2022 14:33 INDICATION: Lower limb swelling, pain and erythema TECHNIQUE: Grayscale ultrasound images without and with compression and Doppler ultrasound images of the left lower extremity veins were obtained. COMPARISON: None. FINDINGS: The visualized portions of left common femoral vein, profunda (deep) femoral vein, femoral vein, popl iteal vein, peroneal veins, posterior tibial veins, gastrocnemius vein and greater saphenous vein out flow are patent. Mild subcutaneous edema anterior to the left henry. IMPRESSION: 1. No deep venous thrombosis in the left lower limb. Reviewed, dictated and finalized at location A. IDE COLLECTOR
== END 2022-10-13 13:43 | disposition home or self-care (01) ==
LOC: ANHIMG 13:49
PROVIDERS: Visit Provider Internal Medicine Hematology & Oncology
DX: R60.0 Localized edema (principal)
CPT/HCPCS: 93971

== ENCOUNTER 2022-12-22 15:26 | Outpatient (CLI) | payer OTHER, SELFPAY ==
[2022-12-22 15:47] LABS: Basophils Absolute Auto 0.1 K/mm3 (0.0-0.1); Basophils Percent Auto 0.5 % (0.2-1.2); Eosinophils Absolute Auto 0.2 K/mm3 (0-0.3); Eosinophils Percent Auto 1.6 % (0-4.4); Hematocrit 41.2 % (37.0-47.0); Hemoglobin 13.2 g/dL (12.0-15.0); Immature Granulocyte Absolute 0.03 K/mm3 (0.00-0.031); Immature Granulocyte Percent A 0.3 % (0-0.5); Lymphocytes Absolute Auto 3.66 K/mm3 (0.9-3.2); Mean Corpuscular Hemoglobin 30.3 pg (26-34); Mean Corpuscular Volume 94.7 fl (80-100); Mean Platelet Volume 8.7 fl (7.4-10.4); Monocytes Absolute Auto 0.6 K/mm3 (0.1-0.6); Monocytes Percent Auto 5.7 % (2.6-8.5); Neutrophils Absolute Auto 5.7 K/mm3 (1.3-6.7); Neutrophils Percent Auto 55.9 % (45.5-73.1); Platelet Count Result 289 k/mm3 (150-375); Red Blood Count 4.35 M/mm3 (4.2-5.4); White Blood Count 10.2 K/mm3 (4.5-10.0)
[2022-12-22 15:50] LABS: Blood Urea Nitrogen 9 mg/dL (8-26); Carbon Dioxide 26 mmol/L (22-30); Chloride 103 mmol/L (98-109); Estimated Glomerular Filt Rate > 60; Glucose 107 mg/dL (70-105); Ionized Calcium (POC) 1.15 mmol/L (1.11-1.31); Potassium 3.8 mmol/L (3.5-4.9); Sodium 140 mmol/L (138-146)
[2022-12-23 04:22] LABS: Alanine Aminotransferase 30 U/L (6-35); Albumin Level 4.2 g/dL (3.5-5.1); Alkaline Phosphatase 104 U/L (38-126); Anion Gap 6 mmol/L (8-16); Aspartate Amino Transferase 27 U/L (14-36); Bilirubin,Total 0.3 mg/dL (0.2-1.3); Blood Urea Nitrogen 10 mg/dL (7-17); Calcium 8.7 mg/dL (8.4-10.2); Carbon Dioxide 26 mmol/L (22-30); Chloride 107 mmol/L (98-107); Estimated Glomerular Filt Rate > 60; Glucose 104 mg/dL (65-110); Lactate Dehydrogenase 108 U/L (120-246); Potassium 3.9 mmol/L (3.4-5.0); Sodium 139 mmol/L (137-145)
== END 2022-12-22 15:27 | disposition home or self-care (01) ==
PROVIDERS: Visit Provider Internal Medicine Hematology & Oncology
DX: C81.11 Nodular sclerosis Hodgkin lymphoma, lymph nodes of head, face, and neck (principal)
CPT/HCPCS: 36415; 80047; 80053; 83615; 85025

== ENCOUNTER 2023-01-04 19:25 | Emergency (ER) | payer OTHER, SELFPAY ==
[2023-01-04 19:34] VITALS: BP 132/87; PULSE 103; RESP 16; TEMP 37.2; O2SAT 99
--- NOTE | 2023-01-04 19:36 | ED.WOUNDLAC ---
HPI - Wound/Laceration General Stated Complaint: non healing wound Time Seen by Provider: 01/04/23 19:37 Source: patient Mode of arrival: ambulatory Limitations: no limitations History of Present Illness HPI narrative: 42-year-old female with a history of Hodgkin's lymphoma presented for complaint nonhealing wound to the left lower leg. She endorses she had a skin biopsy on 12/22/2022. Since then she has had purulent drainage with foul odor, worsening redness and tenderness to the surrounding tissue. She states the original Steri-Strip that was applied has remained intact. 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 She does not have a follow-up appointment with the pan washer, states she contacted them today and they will contact her. Patient is daily smoker. 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 Denies numbness, tingling, weakness, decreased range of motion of the lower extremity, foot discoloration or temp changes, nausea, vomiting, fevers or chills. Pain is not worse with ambulation. She denies calf pain. She is taking Aleve for symptoms. Related Data Allergies Allergy/AdvReac Type Severity Reaction Status Date / Time Penicillins Allergy Severe Anaphylaxis Verified 01/04/23 19:29 cefazolin Allergy Intermediate Vomiting Verified 01/04/23 19:29 clindamycin Allergy Anaphylaxis Verified 01/04/23 19:29 Review of Systems Review of Systems: CONSTITUTIONAL: Denies body aches, fever, chills, or sweats. EYES: Denies visual changes, redness, or discharge. ENT: Denies rhinorrhea, congestion CARDIOVASCULAR: Denies chest pain, palpitations, or edema. RESPIRATORY: Denies cough or dyspnea. GASTROINTESTINAL: Denies abdominal pain, nausea, vomiting, or diarrhea. SKIN: per HPI MUSCULOSKELETAL: Denies back pain, joint pain, or myalgia. NEUROLOGIC: Denies headache, numbness, tingling, or weakness. [facility] Past Medical History Medical History Anxiety Arthritis Clavicle fracture GERD (gastroesophageal reflux disease) Hodgkin lymphoma (~03/2019) Kidney stones Right arm fracture Surgical History Surgical History H/O section H/O tubal ligation History of arthroplasty of left knee Hx of cholecystectomy Family History Family History Other Cerebrovascular accident Diabetes mellitus Family history of alcoholism Family history of arthritis Family history of cardiovascular disease Family history of elevated blood lipids Family history of malignant neoplasm of male breast Family history of malignant neoplasm of ovary Hypertension Social History Social History Smoking packs per day: 0.5 Smoking cigarettes per day: 10.0 Smoking status: Current every day smoker Alcohol intake: never Substance use: never Living arrangements: with family Occupation/Education: occupation Additional occupation/education comments: [employer] Gender identity (if verbalized by the patient): Male Comments At time of signature, I have reviewed and agree with nursing past medical, surgical, social and family history unless otherwise noted. Please see nursing chart for further information. There is no relevant family history pertinent to the presenting complaint Exam Narrative: GENERAL: Well-appearing ENT: Mucous membranes moist. Oropharynx without edema, erythema or lesions. CHEST: Clear to auscultation. HEART: Regular rate and rhythm. SKIN: Warm, dry. Punch bx site to lower left leg approx 0.5cm diameter, center with scant yellow/serous fluid. Tenderness to surrounding skin with mild induration approx 5cm diameter. No circumferential erythema/cellulitis. PPP. Bilateral ankle swelling, Left 2+ Right 1+. NEURO: Alert and oriented x3. Course Course Emergency Course: Patient is aware
== END 2023-01-04 19:55 | disposition home or self-care (01) ==
PROVIDERS: Emergency Provider Nurse Practitioner Family
DX: L03.116 Cellulitis of left lower limb (principal); F17.210 Nicotine dependence, cigarettes, uncomplicated; Z85.71 Personal history of Hodgkin lymphoma
CPT/HCPCS: 99213; G0463

== ENCOUNTER 2023-01-12 10:09 | Outpatient (CLI) | payer OTHER, SELFPAY ==
--- NOTE | ~2023-01-12 | CT_ITS ---
Clinical Indication: Hodgkin's lymphoma CT Scan of the Chest, Abdomen, and Pelvis with Contrast: Technique: Contiguous sections were acquired throughout the chest, abdomen, and pelvis after intraven ous administration of 100 cc of Omnipaque 350. Dose reduction technique was used on this scan by jono zuletaing automated exposure control and iterative reconstruction technique. The dose-length product (DL P) was 1009.54 mGy-cm. COMPARISON: 05/25/2022 Findings: Enlarged, superior left mediastinal lymph node, interposed between the left common carotid and left s ubclavian artery, is essentially stable from prior exam. No other thoracic lymphadenopathy seen. The mediastinal vascular structures appear normal. There is no evidence of pleural or pericardial effusion. The lungs are clear. No pulmonary nodules or infiltrates are noted. Diffuse fatty infiltration of liver noted. The spleen, pancreas, adrenals and kidneys are within norm al limits. Cholecystectomy clips are present. Minimal atherosclerotic calcifications of the aorta are noted no ascites.. No lymphadenopathy. No bowel obstruction or bowel wall thickening. There is no evidence to suggest acute appendicitis. Urinary bladder is unremarkable. No adnexal mass evident. Impression: Stable enlarged lymph node at the superior left mediastinum, which could reflect sequelae of treated disease. No other lymphadenopathy evident. Diffuse fatty infiltration of liver. Reviewed, dictated and finalized at [facility]. Impression: Stable enlarged lymph node at the superior left mediastinum, which could reflec t sequelae of treated disease. No other lymphadenopathy evident. Diffuse fatty infiltration of liver.
== END 2023-01-12 10:10 | disposition home or self-care (01) ==
PROVIDERS: PCP Internal Medicine Hematology & Oncology; Visit Provider Internal Medicine Hematology & Oncology
DX: C81.11 Nodular sclerosis Hodgkin lymphoma, lymph nodes of head, face, and neck (principal); K76.0 Fatty (change of) liver, not elsewhere classified
CPT/HCPCS: 71260; 74177; Q9967

== ENCOUNTER 2024-01-12 09:51 | Outpatient (CLI) | payer BC, SELFPAY ==
[2024-01-12 10:13] LABS: Basophils Absolute Auto 0.1 K/mm3 (0.0-0.1); Basophils Percent Auto 0.5 % (0.2-1.2); Eosinophils Absolute Auto 0.1 K/mm3 (0-0.3); Eosinophils Percent Auto 1.5 % (0-4.4); Hematocrit 42.4 % (37.0-47.0); Hemoglobin 13.7 g/dL (12.0-15.0); Immature Granulocyte Absolute 0.03 K/mm3 (0.00-0.031); Immature Granulocyte Percent A 0.3 % (0-0.5); Lymphocytes Absolute Auto 3.57 K/mm3 (0.9-3.2); Lymphocytes Percent Auto 37.1 % (18.3-44.2); Mean Corpuscular HGB Conc 32.3 g/dl (32-36); Mean Corpuscular Hemoglobin 30.2 pg (26-34); Mean Corpuscular Volume 93.6 fl (80-100); Mean Platelet Volume 8.6 fl (7.4-10.4); Monocytes Absolute Auto 0.5 K/mm3 (0.1-0.6); Monocytes Percent Auto 5.6 % (2.6-8.5); Neutrophils Absolute Auto 5.3 K/mm3 (1.3-6.7); Platelet Count Result 281 k/mm3 (150-375); Red Blood Count 4.53 M/mm3 (4.2-5.4); Red Cell Distribution Width 13.6 % (11.5-14.5); White Blood Count 9.6 K/mm3 (4.5-10.0)
[2024-01-12 10:22] LABS: Blood Urea Nitrogen 8 mg/dL (8-26); Carbon Dioxide 26 mmol/L (22-30); Chloride 102 mmol/L (98-109); Estimated Glomerular Filt Rate > 60; Glucose 111 mg/dL (70-105); Ionized Calcium (POC) 1.21 mmol/L (1.11-1.31); Potassium 4.1 mmol/L (3.5-4.9); Sodium 139 mmol/L (138-146)
[2024-01-12 13:46] LABS: Alanine Aminotransferase 22 U/L (6-35); Albumin Level 3.8 g/dL (3.5-5.1); Alkaline Phosphatase 99 U/L (38-126); Anion Gap 7 mmol/L (8-16); Aspartate Amino Transferase 21 U/L (14-36); Bilirubin,Total 0.5 mg/dL (0.2-1.3); Blood Urea Nitrogen 9 mg/dL (7-17); Calcium 9.3 mg/dL (8.4-10.2); Carbon Dioxide 24 mmol/L (22-30); Chloride 107 mmol/L (98-107); Estimated Glomerular Filt Rate > 60; Glucose 111 mg/dL (65-110); Lactate Dehydrogenase 101 U/L (120-246); Potassium 4.2 mmol/L (3.4-5.0); Sodium 138 mmol/L (137-145)
== END 2024-01-12 09:52 | disposition home or self-care (01) ==
LOC: ANHLAB 09:57
PROVIDERS: Visit Provider Internal Medicine Hematology & Oncology
DX: C81.11 Nodular sclerosis Hodgkin lymphoma, lymph nodes of head, face, and neck (principal)
CPT/HCPCS: 36415; 80047; 80053; 83615; 85025

== ENCOUNTER 2025-05-25 23:18 | Emergency (ER) | payer BC, SELFPAY ==
--- NOTE | ~2025-05-25 | CT_ITS ---
EXAMINATION: CT abdomen pelvis w con DATE: 05/26/2025 01:21 INDICATION: Right upper quadrant pain. History of cholecystitis. TECHNIQUE: Computed tomography (CT) of the abdomen and pelvis was performed with 100 cc Omnipaque 350 intravenous contrast. The dose-length product was 886.84 mGy-cm. COMPARISON: None. FINDINGS: Fatty infiltration of the liver. Status post cholecystectomy. The spleen, pancreas, adrenal glands and kidneys are unremarkable. There is mild diffuse thickening of the wall of the colon, susp icious for infectious or inflammatory colitis. Normal appendix. No abnormal pelvic masses or fluid co llections. No acute osseous abnormality. IMPRESSION: 1. Mild diffuse thickening of the colon, suspicious for infectious or inflammatory colitis. 2: Fatty infiltration of the liver. Reviewed, dictated and finalized at location B. IMPRESSION: 1. Mild diffuse thickening of the colon, suspicious for infectious or inflammat ory colitis. 2: Fatty infiltration of the liver.
[2025-05-25 23:20] VITALS: BP 139/77; PULSE 109; RESP 16; TEMP 35.8; O2SAT 99
--- OUTSIDE RECORDS SUMMARY | 2025-05-25 23:21 | XMS_ITS | Encounter Summary ---
Author Organization [facility] Address [address] [place] [address] Care Team Providers Care Regional Facilities Manager Name Role Phone Conversion, History Primary Care Provider Leslye hopper Encounter Details Date Type Department Care Team (Late st Contact Info) Description 01/05/2007 Outpatient Historical [facility] Nuvia Zapata MD [address] [place] [address] [phone] Social History Tobacco Use Types Packs/Day Years Used Date Smoking Tobacco: Never Assessed Comments Unknown Sex and Gender Information Value Date Recorded Sex Assigned at Not on file Legal Sex Female 3:46 AM SOFTWARE SUPPORT ENGINEER Gender Identity Not on file Sexual Orientation Not on file documented as of this encounter Plan of Treatment Not on file documented as of this encounter Visit Diagnoses Not on filedocumented in this encounter Care Teams Regional Facilities Manager Relationship Specialty Start Date End Date Conversion, History PCP - General 07/31/07 05/07/19 documented as of this encounter
--- OUTSIDE RECORDS SUMMARY | 2025-05-25 23:21 | XMS_ITS | Encounter Summary ---
Author Organization [facility] Address [address] [place] [address] Care Team Providers Care Emery Wheel Worker Name Role Phone Conversion, History Primary Care Provider Leslye hopper Encounter Details Date Type Department Care Team (Late st Contact Info) Description 01/14/2008 Outpatient Historical [facility] [address] [facility] [address] [place] [phone] Nuvia Zapata MD [address] [place] [phone] Social History Tobacco Use Types Packs/Day Years Used Date Smoking Tobacco: Never Assessed Comments Unknown Sex and Gender Information Value Date Recorded Sex Assigned at Not on file Legal Sex Female 3:46 AM HOSPITAL TECHNICIAN Gender Identity Not on file Sexual Orientation Not on file documented as of this encounter Plan of Treatment Not on file documented as of this encounter Visit Diagnoses Not on filedocumented in this encounter Care Teams Emery Wheel Worker Relationship Specialty Start Date End Date Conversion, History PCP - General 07/31/07 05/07/19 documented as of this encounter
--- OUTSIDE RECORDS SUMMARY | 2025-05-25 23:21 | XMS_ITS | Encounter Summary ---
Author Organization [facility] Address [address] [place] [address] Care Team Providers Care World Renowned Chef And Restaurant Owner Name Role Phone Conversion, History Primary Care Provider Leslye hopper Encounter Details Date Type Department Care Team (Late st Contact Info) Description 12/20/2007 Emergency [facility] WASH Er, Authorized P NO ADDRESS ON FILE Ashleigh Killian MD [address] [place] [address] [place] [address] Social History Tobacco Use Types Packs/Day Years Used Date Smoking Tobacco: Never Assessed Comments Unknown Sex and Gender Information Value Date Recorded Sex Assigned at Not on file Legal Sex Female 3:46 AM SEWER AND 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 TECHNICIAN Gender Identity Not on file Sexual Orientation Not on file documented as of this encounter Plan of Treatment Not on file documented as of this encounter Procedures Procedure Name Priority Date/Time Associated Diagnosis Comments XR KNEE 4+ VW RIGHT Stat 12/20/2007 9 :18 PM SEWER AND DRAIN TECHNICIAN documented in this encounter Results * XR KNEE 4+ VW RIGHT (12/20/2007 9:18 PM SEWER AND DRAIN TECHNICIAN) Anatomical Region Laterality Modality Lower Extremity Other 12/20/2007 9:18 PM SEWER AND DRAIN TECHNICIAN Narrative 12/20/2007 9:33 PM SEWER AND DRAIN TECHNICIAN [place] [id number] Imaging Services Procedure Completion Date Ordering Provider Accession Number [id number] 12/20/2007 9:18:29 ASHLEIGH KILLIAN [id number] RIGHT PM Reason for Exam: right knee pain Interpretation Examination: Right knee. 4 views Clinical History: Pain. Findings: Examination of the right knee fails to demonstrate evidence of fracture, dislocation, or subluxation. No distinct joint space abnormality or loose intra-articular foreign body is seen. Impression: Radiographically normal right knee. . Dictated by: Mariano PFEIFFER 12/20/2007 21:32 Electronically signed by: Mariano PFEIFFER 12/20/2007 21:33 Admit Date: 12/20/2007 DIAMOND HERBERT Sex: F Admitting MD: VIJI CASTILLO P Birthdate: 1980 natural resources specialist:PCP , NONE CMRN:[id number] Room: [facility]: [address] [place] [address] Procedure Note Provider, Historical - 12/20/[address] [address] Imaging Services Procedure Completion Date Ordering Provider AccessionNumber [id number] 12/20/2007 9:18:29 ASHLEIGH [id number] RIGHT PM Reason for Exam: right knee pain Interpretation Examination: Right knee. 4 views Clinical History: Pain. Findings: Examination of the right knee fails to demonstrate evidenceof fracture, dislocation, or subluxation. No distinct joint spaceabnormality or loose intra-articular foreign body is seen. Impression: Radiographically normal right knee. . Dictated by: Mariano PFEIFFER 12/20/2007 21:32 Electronically signed by: Mariano PFEIFFER 12/20/2007 21:33 Admit Date: 12/20/2007 DIAMOND HERBERT Sex: F Admitting MD: VIJI CASTILLO P Birthdate: 1980 natural resources specialist:PCP , NONE CMRN:[id number] Room: [facility]: [phone] us Ashleigh Killian MD DIAGNOSTIC IMAGING ORDERABLE S Final Result documented in this encounter Visit Diagnoses Not on filedocumented in this encounter Care Teams World Renowned Chef And Restaurant Owner Relationship Specialty Start Date End Date Conversion, History PCP - General 07/31/07 05/07/19 documented as of this encounter
--- OUTSIDE RECORDS SUMMARY | 2025-05-25 23:21 | XMS_ITS | Encounter Summary ---
Author Organization [facility] Address [address] [place] [address] Care Team Providers Care Bow Maker Production Name Role Phone Conversion, History Primary Care Provider Leslye hopper Encounter Details Date Type Department Care Team (Late st Contact Info) Description 12/27/2006 Outpatient Historical [facility] [address] [place] [address] [address] [place] [phone] Deandre Grimaldo MD [address] [place] [address] [address] [place] [phone] Social History Tobacco Use Types Packs/Day Years Used Date Smoking Tobacco: Never Assessed Comments Unknown Sex and Gender Information Value Date Recorded Sex Assigned at Not on file Legal Sex Female 3:46 AM PHP SOFTWARE ENGINEER Gender Identity Not on file Sexual Orientation Not on file documented as of this encounter Plan of Treatment Not on file documented as of this encounter Visit Diagnoses Not on filedocumented in this encounter Care Teams Bow Maker Production Relationship Specialty Start Date End Date Conversion, History PCP - General 07/31/07 05/07/19 documented as of this encounter
--- OUTSIDE RECORDS SUMMARY | 2025-05-25 23:21 | XMS_ITS | Encounter Summary ---
Author Organization [facility] Address [address] [place] [address] Care Team Providers Care Educator Senior Clinical Name Role Phone Conversion, History Primary Care Provider Leslye hopper Encounter Details Date Type Department Care Team (Latest Contact Info) Description 01/16/2008 Outpatient Historical [facility] Nuvia Zapata MD [address] [place] [phone] Supervision of Other Normal Social History Tobacco Use Types Packs/Day Years Used Date Smoking Tobacco: Never Assessed Comments Unknown Sex and Gender Information Value Date Recorded Sex Assigned at Not on file Legal Sex Female 3:46 AM CLOUD ARCHITECT Gender Identity Not on file Sexual Orientation Not on file documented as of this encounter Plan of Treatment Not on file documented as of this encounter Visit Diagnoses Diagnosis Supervision of other normal documented in this encounter Care Teams Educator Senior Clinical Relationship Specialty Start Date End Date Conversion, History PCP - General 07/31/07 05/07/19 documented as of this encounter
--- OUTSIDE RECORDS SUMMARY | 2025-05-25 23:21 | XMS_ITS | Encounter Summary ---
Author Organization [facility] Address [address] [place] [address] Care Team Providers Care Preanalytics Team Lead Name Role Phone Conversion, History Primary Care Provider Leslye hopper Encounter Details Date Type Department Care Team (Late st Contact Info) Description 07/04/2007 Emergency [facility]Y [facility] Jamil Anand Incomplete Spontaneous with Other Specified Complications (Primary Dx) Social History Tobacco Use Types Packs/Day Years Used Date Smoking Tobacco: Never Assessed Comments Unknown Sex and Gender Information Value Date Recorded Sex Assigned at Not on file Legal Sex Female 3:46 AM ASSISTANT STORE LEADER Gender Identity Not on file Sexual Orientation Not on file documented as of this encounter Plan of Treatment Not on file documented as of this encounter Procedures Procedure Name Priority Date/Time Associated Diagnosis Comments CBC WITH DIFFERENTIAL Routine 07/04/2007 10:15 AM CDT CBC WITH DIFFERENTIAL Routine 07/04/2007 10:15 AM CDT HCG QUANTITATIVE, BLOOD Routine 07/04/2007 10:15 AM CDT documented in this encounter Results * (ABNORMAL) BETA HCG QUANTITATIVE, BLOOD (07/04/2007 10:15 AM CDT) HCG QUANT, BLOOD 33.2(H) 0.0 - 5.0 mIU/mL INTERFACE SYSTEM 07/04/2007 10:1 5 AM CDT [facility] CHEMISTRY ORDERABLES Edited Performing Organization Address [facility] Phone Number INTERFACE SYSTEM Refer to clinic/hospital department * (ABNORMAL) CBC WITH DIFFERENTIAL (07/04/2007 10:15 AM CDT) NEUTROPHILS 70 45 - 70 % INTERFAC E SYSTEM LYMPHOCYTES 21 16 - 45 % INTERFAC E SYSTEM MONOCYTES 8 3 - 13 % INTERFACE SYSTEM EOSINOPHILS 1 0 - 7 % INTERFAC E SYSTEM BASOPHILS 0 0 - 2 % INTERFACE SYSTEM NEUTROPHIL ABSOLUTE 7.46(H) 1.90 - 7.00 K/uL INTERFACE SYSTEM LYMPHOCYTE ABSOLUTE 2.23 0.70 - 4.50 K/uL INTERFACE SYSTEM MONOCYTE ABSOLUTE 0.84 0.10 - 1.30 K/uL INTERFACE SYSTEM EOSINOPHIL ABSOLUTE 0.15 0.00 - 0.70 K/uL INTERFACE SYSTEM BASOPHILS ABSOLUTE 0.02 0.00 - 0.20 K/uL INTERFACE SYSTEM 07/04/2007 10:1 5 AM CDT [facility] Edited Performing Organization Address [facility] Phone Number INTERFACE SYSTEM Refer to clinic/hospital department * (ABNORMAL) CBC WITH DIFFERENTIAL (07/04/2007 10:15 AM CDT) WBC 10.7(H) 4.0 - 9.8 K/uL INTERFACE SYSTEM RBC 4.35 3.90 - 4.90 M/uL INTERFACE SYSTEM HEMOGLOBIN 13.0 11.8 - 14.8 g/dL INTERFACE SYSTEM HEMATOCRIT 39.2 35.5 - 44.0 % INTERFACE SYSTEM MCV 90.1 82.0 - 99.0 fL INTERFACE SYSTEM MCH 29.9 27.2 - 32.6 pg INTERFACE SYSTEM MCHC 33.2 31.5 - 35.5 % INTERFACE SYSTEM RDW 13.6 11.5 - 14.5 % INTERFACE SYSTEM RDW-STDEV 45.1 37.1 - 48.7 fL INTERFACE SYSTEM PLATELETS 298 140 - 350 K/uL INTERFACE SYSTEM MPV 9.5 9.3 - 12.4 fL INTERFACE SYSTEM 07/04/2007 10:1 5 AM CDT us Jamil Baljinder HEMATOLOGY ORDERABLES Edited INTERFACE SYSTEM Refer to clinic/hospital department documented in this encounter Visit Diagnoses Diagnosis Incomplete spontaneous with other specified complications- Primary documented in this encounter Care Teams Preanalytics Team Lead Relationship Specialty Start Date End Date Conversion, History PCP - General 07/31/07 05/07/19 documented as of this encounter
--- OUTSIDE RECORDS SUMMARY | 2025-05-25 23:21 | XMS_ITS | Encounter Summary ---
Author Organization [facility] Address [address] [place] [address] Care Team Providers Care Acid Conditioning Worker Name Role Phone Conversion, History Primary Care Provider Leslye hopper Encounter Details Date Type Department Care Team (Late st Contact Info) Description 12/21/2006 Emergency [facility] Anupam Agrawal MD [address] [facility] [place] [address] Other Specified Noninflammatory Disorder of Vagina (Primary Dx) Social History Tobacco Use Types Packs/Day Years Used Date Smoking Tobacco: Never Assessed Comments Unknown Sex and Gender Information Value Date Recorded Sex Assigned at Not on file Legal Sex Female 3:46 AM MANAGER PRINT Gender Identity Not on file Sexual Orientation Not on file documented as of this encounter Plan of Treatment Not on file documented as of this encounter Procedures Procedure Name Priority Date/Time Associated Diagnosis Comments CBC WITH DIFFERENTIAL Routine 12/21/2006 10:55 PM MANAGER PRINT CBC WITH DIFFERENTIAL Routine 12/21/2006 10:55 PM MANAGER PRINT documented in this encounter Results * CBC WITH DIFFERENTIAL (12/21/2006 10:55 PM MANAGER PRINT) NEUTROPHILS 58 45 - 70 % INTERFAC E SYSTEM LYMPHOCYTES 34 16 - 45 % INTERFAC E SYSTEM MONOCYTES 7 3 - 13 % INTERFACE SYSTEM EOSINOPHILS 1 0 - 7 % INTERFAC E SYSTEM BASOPHILS 0 0 - 2 % INTERFACE SYSTEM NEUTROPHIL ABSOLUTE 6.97 1.90 - 7.00 K/uL INTERFACE SYSTEM LYMPHOCYTE ABSOLUTE 4.04 0.70 - 4.50 K/uL INTERFACE SYSTEM MONOCYTE ABSOLUTE 0.79 0.10 - 1.30 K/uL INTERFACE SYSTEM EOSINOPHIL ABSOLUTE 0.16 0.00 - 0.70 K/uL INTERFACE SYSTEM BASOPHILS ABSOLUTE 0.03 0.00 - 0.20 K/uL INTERFACE SYSTEM 12/21/2006 10:5 5 PM MANAGER PRINT Anupam Rizo MD HEMATOLOGY ORDERABLES Edite d Performing Organization Address [facility] de Phone Number INTERFACE SYSTEM Refer to clinic/hospital department * (ABNORMAL) CBC WITH DIFFERENTIAL (12/21/2006 10:55 PM MANAGER PRINT) WBC 12.0(H) 4.0 - 9.8 K/uL INTERFACE SYSTEM RBC 4.23 3.90 - 4.90 M/uL INTERFACE SYSTEM HEMOGLOBIN 12.9 11.8 - 14.8 g/dL INTERFACE SYSTEM HEMATOCRIT 38.4 35.5 - 44.0 % INTERFACE SYSTEM MCV 90.8 82.0 - 99.0 fL INTERFACE SYSTEM MCH 30.5 27.2 - 32.6 pg INTERFACE SYSTEM MCHC 33.6 31.5 - 35.5 % INTERFACE SYSTEM RDW 13.5 11.5 - 14.5 % INTERFACE SYSTEM RDW-STDEV 44.4 37.1 - 48.7 fL INTERFACE SYSTEM PLATELETS 287 140 - 350 K/uL INTERFACE SYSTEM MPV 9.3 9.3 - 12.4 fL INTERFACE SYSTEM 12/21/2006 10:5 5 PM MANAGER PRINT Anupam Rizo MD HEMATOLOGY ORDERABLES Edite d Performing Organization Address [facility] de Phone Number INTERFACE SYSTEM Refer to clinic/hospital department documented in this encounter Visit Diagnoses Diagnosis Other specified noninflammatory disorder of vagina- Primary documented in this encounter Care Teams Acid Conditioning Worker Relationship Specialty Start Date End Date Conversion, History PCP - General 07/31/07 05/07/19 documented as of this encounter
--- OUTSIDE RECORDS SUMMARY | 2025-05-25 23:21 | XMS_ITS | Encounter Summary ---
Author Organization [facility] Address [address] [place] [address] Care Team Providers Care Rn On Site Name Role Phone Conversion, History Primary Care Provider Leslye hopper Encounter Details Date Type Department Care Team (Late st Contact Info) Description 01/14/2008 Outpatient Historical [facility] [address] [facility] [address] [place] [phone] Nuvia Zapata MD [address] [place] [phone] Social History Tobacco Use Types Packs/Day Years Used Date Smoking Tobacco: Never Assessed Comments Unknown Sex and Gender Information Value Date Recorded Sex Assigned at Not on file 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
--- OUTSIDE RECORDS SUMMARY | 2025-05-25 23:21 | XMS_ITS | Encounter Summary ---
Author Organization [facility] Address 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
--- OUTSIDE RECORDS SUMMARY | 2025-05-25 23:21 | XMS_ITS | Encounter Summary ---
Author Organization [facility] Address 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 Gender Identity Not on file Sexual Orientation Not on file documented as of this encounter Plan of Treatment Not on file documented as of this encounter Procedures Procedure Name Priority Date/Time Associated Diagnosis Comments US OB LESS THAN 14 WKS SINGLE GEST Timed Study 01/17/2008 11:43 AM CDT documented in this encounter Results * US OB < 14 WKS SINGLE GEST (01/17/2008 11:43 AM CDT) Anatomical Region Laterality Modality Pelvis Other 01/17/2008 11:4 3 AM CDT Narrative 01/21/2008 12:37 PM CDT [place] [address] Imaging Services Procedure Completion Date Ordering Provider Accession Number US Preg < 01/17/2008 NUVIA OH [id number] 14wks_TV OB 11:43:55 AM Reason for Exam: V22.1 - SUPERVIS OTH NORMAL PREG Interpretation PLEASE SEE REPORT FROM Anselmo IN AWD OR ULTRAVISUAL. Dictated by: RADIOLOGY, DEPARTMENT O Electronically signed by: RADIOLOGY, DEPARTMENT 01/21/2008 12:37 Transcribed: 01/18/2008 10:05 [place] Admit Date: 01/17/2008 DIAMOND HERBERT Sex: F Admitting MD: NUVIA OH Birthdate: 1980 case supervisor:PCP , NONE CMRN:[id number] Room: [facility]: [address] [place] [address] Procedure Note Provider, Historical - 01/21/2008 [place] [address] Imaging Services Procedure Completion Date Ordering Provider AccessionNumber US Preg < 01/17/2008 NUVIA OH [id number] 14wks_TV OB 11:43:55 AM Reason for Exam: V22.1 - SUPERVIS OTH NORMAL PREG Interpretation PLEASE SEE REPORT FROM Anselmo IN AWD OR ULTRAVISUAL. Dictated by: RADIOLOGY, DEPARTMENT O Electronically signed by: RADIOLOGY, DEPARTMENT 01/21/2008 12:37 Transcribed: 01/18/2008 10:05 [place] Admit Date: 01/17/2008 DIAMOND HERBERT Sex: F Admitting MD: UNVIA OH Birthdate: 1980 case supervisor:PCP , NONE CMRN:[id number] Room: [facility]: [address] [place] [address] Nuvia Zapata MD ORDERABLES Final Result documented in this encounter Visit Diagnoses Diagnosis Supervision of other normal documented in this encounter Care Teams Command And Control Specialist Relationship Specialty Start Date End Date Conversion, History PCP - General 07/31/07 05/07/19 documented as of this encounter
--- OUTSIDE RECORDS SUMMARY | 2025-05-25 23:21 | XMS_ITS | Encounter Summary ---
Author Organization [employer] Address [address] [place] [address] Care Team Providers Care Fountain Server Name Role Phone Conversion, History Primary Care Provider Leslye hopper Encounter Details Date Type Department Care Team (Late st Contact Info) Description 10/28/2006 Emergency [facility] Luis Jones MD [address] [place] [address] [place] [address] Unspecified Local Infection of Skin and Subcutaneous Tissue (Primary Dx) Social History Tobacco Use Types Packs/Day Years Used Date Smoking Tobacco: Never Assessed Comments Unknown Sex and Gender Information Value Date Recorded Sex Assigned at Not on file 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
--- OUTSIDE RECORDS SUMMARY | 2025-05-25 23:21 | XMS_ITS | Encounter Summary ---
Author Organization [employer] [facility] Address [address] [place] [address] Care Team Providers Care Cost Consultant Name Role Phone Conversion, History Primary Care Provider Leslye hopper Encounter Details Date Type Department Care Team (Late st Contact Info) Description 09/10/2007 Emergency [facility] Criselda Brand MD [address] [place] [address] [place] [address] Other Tear of Cartilage or Meniscus of Knee, Current (Primary Dx) Social History Tobacco Use Types Packs/Day Years Used Date Smoking Tobacco: Never Assessed Comments Unknown Sex and Gender Information Value Date Recorded Sex Assigned at Not on file 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
--- OUTSIDE RECORDS SUMMARY | 2025-05-25 23:21 | XMS_ITS | Encounter Summary ---
Author Organization [facility] Address [address] [place] [address] Care Team Providers Care Plycor Operator Name Role Phone Conversion, History Primary Care Provider Leslye hopper Encounter Details Date Type Department Care Team (Late st Contact Info) Description 01/15/2008 Outpatient Historical [facility] [address] [place] [address] [address] [place] [address] Deandre Grimaldo MD [address] [place] [address] [address] [place] [address] Social History Tobacco Use Types Packs/Day Years Used Date Smoking Tobacco: Never Assessed Comments Unknown Sex and Gender Information Value Date Recorded Sex Assigned at Not on file 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
--- OUTSIDE RECORDS SUMMARY | 2025-05-25 23:21 | XMS_ITS | Encounter Summary ---
Author Organization [facility] Address 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
--- OUTSIDE RECORDS SUMMARY | 2025-05-25 23:22 | XMS_ITS | Encounter Summary ---
Author Organization [facility] Address [address] [place] [address] Care Team Providers Care Milling Planer Operator Name Role Phone Conversion, History Primary Care Provider Leslye hopper Encounter Details Date Type Department Care Team (Latest Contact Info) Description 10/08/2001 Outpatient Historical [facility], [address] Mariano Urbina HEMORR EARLY PREG-ANTEPART (Primary Dx) Social History Tobacco Use Types Packs/Day Years Used Date Smoking Tobacco: Never Assessed Comments Unknown Sex and Gender Information Value Date Recorded Sex Assigned at Not on file Legal Sex Female 3:[address]QUIPMENT OPERATOR Gender Identity Not on file Sexual Orientation Not on file documented as of this encounter Plan of Treatment Not on file documented as of this encounter Visit Diagnoses Diagnosis Unspecified hemorrhage in early , antepartum- Primary documented in this encounter Care Teams Milling Planer Operator Relationship Specialty Start Date End Date Conversion, History PCP - General 07/31/07 05/07/19 documented as of this encounter
--- OUTSIDE RECORDS SUMMARY | 2025-05-25 23:22 | XMS_ITS | Encounter Summary ---
Author Organization [facility] Address [address] [place] [address] Care Team Providers Care Fabricator Assembler Metal Products Name Role Phone Conversion, History Primary Care Provider Leslye hopper Encounter Details Date Type Department Care Team (Late st Contact Info) Description 07/19/2006 Emergency [facility] Criselda Brand MD [address] [place] [address] [place] [address] Unspecified Conjunctivitis (Primary Dx) Social History Tobacco Use Types Packs/Day Years Used Date Smoking Tobacco: Never Assessed Comments Unknown Sex and Gender Information Value Date Recorded Sex Assigned at Not on file Legal Sex Female 3:46 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
--- OUTSIDE RECORDS SUMMARY | 2025-05-25 23:22 | XMS_ITS | Encounter Summary ---
Author Organization [facility] Address 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
--- OUTSIDE RECORDS SUMMARY | 2025-05-25 23:22 | XMS_ITS | Clinical Summary ---
Author Organization [facility] on Address [address] [place] [address] Phone Care Team Providers Care Stockkeeper Name Role Phone Unavailable Primary Care Provider Unavailabl e Allergies Active Allergy Reactions Criticality Noted Date Comments Cefazolin Nausea and Vomiting Low 09/20/2022 Clindamycin Anaphylaxis High 06/06/2019 Penicillins Anaphylaxis High 07/18/2011 Medications ondansetron (ZOFRAN) 8 mg Tablet TAKE 1 TABLET BY MOUTH EVERY 8 HOURS NEEDED 1 05/25/2019 Active meclizine (ANTIVERT) 25 mg tablet Take 25 mg by mouth 3 times daily as needed for Dizziness. Active doxycycline (MONODOX) 100 mg Capsule TAKE 1 CAPSULE BY MOUTH EVERY 12 HOURS FOR 10 DAYS 20 Capsule 11/04/2022 Active triamcinolone acetonide (KENALOG) 0.1 % Cream 11/06/2022 Active doxycycline hyclate (VIBRAMYCIN) 100 mg capsule Take 100 mg by mouth 2 times daily. Active clotrimazole (LOTRIMIN) 1 % Cream 11/06/2022 Active esomeprazole (NexIUM) 20 mg Capsule, Delayed Release(E.C.) Take 20 mg by mouth. 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 Dissolve tablet on top of tongue, then swallow with saliva. 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 Acute pulmonary embolism 06/18/2019 Encounters Date Type Department Care Team Description 05/14/2025 External Device Data ST[facility] ABSTRACTION Provider, Abstract 05/14/2025 External Device Data STL ABSTRACTION Provider, Abstract 05/13/2025 External Device Data STL ABSTRACTION Provider, Abstract 04/15/2025 External Device Data STL ABSTRACTION Provider, Abstract 03/20/2025 External Device Data ST[facility] ABSTRACTION Provider, Abstract 03/19/2025 External Device Data ST[facility] ABSTRACTION Provider, Abstract 03/18/2025 External Device Data ST[facility] ABSTRACTION Provider, Abstract from Last 3 Months Family History Medical History Relation Name Comments Heart Disease Mother Cancer Sister Cervical Cancer Sister Heart Disease Sister Relation Name Status Comments Brother Alive Father Alive Mother Sister Alive Social History Tobacco Use Types Packs/Day Years Used Date Smoking Tobacco: Every Day Cigarettes 0.5 20 Smokeless Tobacco: Never Tobacco Cessation:Ready to Q uit: Not Asked; Counseling Given: Not Answered Alcohol Use Standard Drinks/Week Comments Not Currently 0 (1 standard drink = 0.6 oz pur e alcohol) Comments No Sex and Gender Information Value Date Recorded Sex Assigned at Not on file 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 Gender Identity Not on file Sexual Orientation Not on file Last Filed Vital Signs Vital Sign Reading Time Taken Comments Blood Pressure 121/86 01/12/2024 10:12 AM CDT Pulse 106 01/12/2024 10:12 AM CDT Temperature 36.6 C (97.8 F) 01/12/2024 10:12 AM CDT Respiratory Rate 14 01/12/2024 10:12 AM CDT Oxygen Saturation 94% 01/12/2024 10:12 AM CDT Inhaled Oxygen Concentration - - Weight 88 kg (194 lb) 01/12/2024 10:12 AM CDT Height 160 cm (5' 3) 11/15/2021 3:54 PM WAREHOUSE DIRECTOR Body Mass Index 34.37 11/15/2021 3:54 PM WAREHOUSE DIRECTOR Plan of Treatment Health Maintenance Due Date Last Done Comments HPV VACCINES (1 - 3-dose series) 1997 DTAP/TDAP/TD VACCINES (1 - Tdap) 2001 HEPATITIS B VACCINES (1 of 3 - 19+ 3-dose series) 2001 HPV/Cotest (21-29) 2003 CERVICAL CANCER SCREENING 2012 HPV/Cotest (30-65) 2012 PAP SMEAR 2012 BREAST CANCER SCREENING 2022 INFLUENZA VACCINE (#1) 2025 05/01/2024, 2019 Insurance [employer]
--- OUTSIDE RECORDS SUMMARY | 2025-05-25 23:22 | XMS_ITS | Encounter Summary ---
Author Organization [facility] Address 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
--- OUTSIDE RECORDS SUMMARY | 2025-05-25 23:22 | XMS_ITS | Encounter Summary ---
Author Organization [facility] Address 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
--- OUTSIDE RECORDS SUMMARY | 2025-05-25 23:22 | XMS_ITS | Encounter Summary ---
Author Organization [facility] Address [address] [place] [address] Care Team Providers Care Vegetable Farmer Name Role Phone Conversion, History Primary Care Provider Leslye hopper Encounter Details Date Type Department Care Team (Latest Contact Info) Description 01/14/2008 Outpatient Historical [facility] Nuvia Zapata MD [address] [place] [address] [phone] Supervision of Other Normal Social History Tobacco Use Types Packs/Day Years Used Date Smoking Tobacco: Never Assessed Comments Unknown Sex and Gender Information Value Date Recorded Sex Assigned at Not on file Legal Sex Female 3:46 AM FORENSIC MANAGER Gender Identity Not on file Sexual Orientation Not on file documented as of this encounter Plan of Treatment Not on file documented as of this encounter Procedures Procedure Name Priority Date/Time Associated Diagnosis Comments HIV DETECTION W/REFLX CONFIRMATION Routine 01/14/2008 11:50 AM CDT TSH WITH REFLEX FT4 AND FT3 Routine 01/14/2008 11:50 AM CDT HEPATITIS C AB W/CONFIRMATION Routine 01/14/2008 11:50 AM CDT HEPATITIS B SURFACE ANTIGEN Routine 01/14/2008 11:50 AM CDT RUBELLA IGG Routine 01/14/2008 11:50 AM CDT CBC WITH DIFFERENTIAL Routine 01/14/2008 11:50 AM CDT RPR Routine 01/14/2008 11:50 AM CDT URINALYSIS WITH REFLEX CULTURE Routine 01/14/2008 11:00 AM CDT DRUG SCREEN, URINE Routine 01/14/2008 11 :00 AM CDT URINALYSIS W/REFLEX MICROSCOPIC Routine 01/14/2008 11:00 AM CDT URINE CULTURE Routine 01/14/2008 11:00 AM CDT documented in this encounter Results * HIV ANTIBODY W/REFLX CONFIRMATION (01/14/2008 11:50 AM CDT) Pathologist [facility] HIV-1 AND 2 ABS NON-REACT DESIRE NON-REACT DESIRE [facility] Comment: A NON-REACTIVE HIV 1/2 ANTIBODY RESULT DOES NOT EXCLUDE HIV INFECTION SINCE THE TIME FRAME FOR SEROCONVERSION IS VARIABLE. IF ACUTE HIV INFECTION IS SUSPECTED, ANTIBODY RETESTING AND NUCLEIC ACID AMPLIFICATION (HIV DNA/RNA) TESTING IS RECOMMENDED. Lab test performed by: [facility] [id number] [place] [phone] ROXANA RIVERA MD Effective April 02, 2007, HIV 1/2 Antibody Screen with Reflexed Confirmation has replaced HIV-1 Antibody Screen. HIV-1 Antibody Screen is no longer offered due to lack of available kits from the supervisor plating and point assembly. Blood specimen (specimen) 01/14/2008 11:50 AM CDT 01/14/2008 11:55 AM CDT us Nuvia Zapata MD CHEMISTRY ORDERABLES Final Re sult [facility] [address] [place] [address] * (ABNORMAL) CBC WITH DIFFERENTIAL (01/14/2008 11:50 AM CDT) WBC 13.3(H) 4.0 - 9.8 K/uL [facility] MPV 9.4 9.3 - 12.4 fL [facility] MCH 30.3 27.2 - 32.6 pg [facility] HEMATOCRIT 40.2 35.5 - 44.0 % [facility] RDW-STDEV 44.8 37.1 - 48.7 fL [facility] RBC 4.39 3.90 - 4.90 M/uL [facility] MCHC 33.1 31.5 - 35.5 % [facility] MCV 91.6 82.0 - 99.0 fL [facility] PLATELETS 329 140 - 350 K/uL [facility] HEMOGLOBIN 13.3 11.8 - 14.8 g/dL [facility] RDW 13.6 11.5 - 14.5 % [facility] NEUTROPHILS 65 45 - 70 % [facility] NEUTROPHIL ABSOLUTE 8.67(H) 1.90 - 7.00 K/uL [facility] EOSINOPHILS 1 0 - 7 % [facility] EOSINOPHIL ABSOLUTE 0.06 0.00 - 0.70 K/uL [facility] LYMPHOCYTES 28 16 - 45 % [facility] LYMPHOCYTE ABSOLUTE 3.66 0.70 - 4.50 K/uL [facility] BASOPHILS 0 0 - 2 % [facility] BASOPHILS ABSOLUTE 0.02 0.00 - 0.20 K/uL [facility] MONOCYTES 6 3 - 13 % [facility] MONOCYTE ABSOLUTE 0.85 0.10 - 1.30 K/uL [facility] Blood specimen (specimen) 01/14/2008 11:50 AM CDT 01/14/2008 11:55 AM CDT Nuvia Zapata MD HEMATOLOGY ORDERABLES Edited Performing Organization Address [facility] Co de Phone Number [facility] [address] [place] [address] * HEPATITIS B SURFACE ANTIGEN (01/14/2008 11:50 AM CDT) HEPATITIS B SURFACE AG NON-REACTI VE NON-REACT DESIRE [facility] Comment: Lab test performed by: [facility] [address] [employer] [id number] ROXANA RIVERA MD Blood specimen (specimen) 01/14/2008 11:50 AM CDT 01/14/2008 11:55 AM CDT Nuvia Zapata MD CHEMISTRY ORDERABLES Final Re sult Performing Organization Address [facility] Co de Phone Number [facility] [address] [place] [address] * RUBELLA IGG (01/14/2008 11:50 AM CDT) RUBELLA IGG 2.66 EIA Value [facility] Comment: EIA VALUE EXPLANATION OF TEST RESULTS --------- <0.91 NEGATIVE - NO RUBELLA IGG ANTIBODY DETECTED. 0.91 - 1.09 EQUIVOCAL > OR = 1.10 POSITIVE - RUBELLA IGG ANTIBODY DETECTED. THE PRESENCE OF RUBELLA IGG ANTIBODY SUGGESTS IMMUNIZATION OR PAST OR CURRENT INFECTION WITH RUBELLA VIRUS. Lab test performed by: [employer] [address] [id number] ROXANA RIVERA MD Blood specimen (specimen) 01/14/2008 11:50 AM CDT 01/14/2008 11:55 AM CDT Nuvia Zapata MD CHEMISTRY ORDERABLES Final Re sult Performing Organization Address [facility] de Phone Number [facility] [address] [place] [address] * RPR (01/14/2008 11:50 AM CDT) Pathologist [facility] RPR NON-REACTI VE NON-REACT DESIRE [facility] Comment: Lab test performed by: [facility] [id number] [employer] [id number] ROXANA RIVERA MD Blood specimen (specimen) 01/14/2008 11:50 AM CDT 01/14/2008 11:55 AM CDT Nuvia Zapata MD CHEMISTRY ORDERABLES Final Re sult Performing Organization Address [facility] de Phone Number [facility] [address] [place] [address] * TSH WITH REFLEX FT4 AND FT3 (01/14/2008 11:50 AM CDT) [facility] TSH 2.33 0.27 - 4.20 uU/mL [facility] Blood specimen (specimen) 01/14/2008 11:50 AM CDT 01/14/2008 11:55 AM CDT Nuvia Zapata MD CHEMISTRY ORDERABLES Final Re sult Performing Organization Address [facility] de Phone Number [facility] [address] [place] [address] * HEPATITIS C AB WITH CONFIRMATION BY RIBA (01/14/2008 11:50 AM CDT) Pathologist [facility] SIGNAL TO CUT OFF 0.07 <1.00 [facility] Comment: Lab test performed by: [email or web address] [id number] [employer] [address] [employer] [id number] ROXANA RIVERA MD HEPATITIS C AB NON-REACTI VE NON-REACT DESIRE [facility] Blood specimen (specimen) 01/14/2008 11:50 AM CDT 01/14/2008 11:55 AM CDT us Nuvia Zapata MD CHEMISTRY ORDERABLES Final Re sult Performing Organization Address City/State/[facility] Co de Phone Number [facility] [address] [place] [address] * (ABNORMAL) URINALYSIS (01/14/2008 11:00 AM CDT) PH UA 8.0 5.0 - 8.0 [facility] KETONES UA Negative Negative [facility] CLARITY UA Cloudy(A) Clear [facility] BLOOD UA Negative Negative [facility] PROTEIN UA Negative Negative [facility] LEUKOCYTE ESTERASE UA Negative Negative [facility] UROBILINOGEN UA 1 <=1 mg/dL [facility] SPECIFIC GRAVITY UA 1.015 1.001 - 1.035 [facility] GLUCOSE UA Negative Negative [facility] COLOR UA Yellow [facility] NITRITE UA Negative Negative [facility] BILIRUBIN UA Negative Negative [facility] AMORPHOUS PHOSPHATES, URINE Moderate /HPF [facility] WBC UA 0-5 0 - 5 /HPF [facility] EPITHELIAL CELLS, URINE 2-5 /HPF [facility] RBC UA 0-2 0 - 2 /HPF [facility] MUCOUS, URINE 3+ [facility] BACTERIA UA 2+(A) None Seen /HPF [facility] MACRO COMMENT Culture in Progress [facility] Urine, clean catch 01/14/2008 11:00 AM CDT 01/14/2008 11:56 AM CDT Nuvia Zapata MD URINE ORDERABLES Edited Performing Organization Address City/[facility] Co de Phone Number [facility] [address] [place] [address] * URINE CULTURE (01/14/2008 11:00 AM CDT) PRELIMINARY REPORT Pending INTERFACE SYSTEM FINAL REPORT >100,000 colonies/mL Polymicrobial growth consistent with normal urethral jose INTERFACE SYSTEM 01/14/2008 11:0 0 AM CDT 01/14/2008 2:33 PM CDT Nuvia Zapata MD MICROBIOLOGY - GENERAL ORDERA BLES Final Result Performing Organization Address [facility] de Phone Number INTERFACE SYSTEM Refer to clinic/hospital department * URINALYSIS WITH REFLEX CULTURE (01/14/2008 11:00 AM CDT) Pathologist [facility] URINE CULTURE ORDER Culture ordered [facility] Comment: Criteria for a reflex culture include one or more of the following: Abnormal WBCs, RBCs or bacteria. Lack of qualifying criteria does not exclude the possibility of a urinary tract infection. Dilute urine, drug interference, etc. may decrease the sensitivity of the criteria analytes. Urine, clean catch 01/14/2008 11:00 AM CDT 01/14/2008 11:56 AM CDT Nuvia Zapata MD URINE ORDERABLES Final Result Performing Organization Address [facility] de Phone Number [facility] [address] [place] [address] * DRUG SCREEN, URINE (01/14/2008 11:00 AM CDT) COMMENT, TOXICOLOGY See Separate Comment [facility] Comment: The urine sample was not handled as a legal specimen and was received without a chain of custody. The results should be used only for medical purposes. A confirmation is recommended for all presumptive positive results. A negative result indicates the analyte, if present, is below the screening threshold. Drug Ref. Range Screening Threshold Amphetamines Negative 500 ng/mL Barbiturates Negative 200 ng/mL Benzodiazepines Negative 100 ng/mL Cannabinoids Negative 50 ng/mL Cocaine Metabolite Negative 300 ng/mL Opiate Negative 300 ng/mL Phencyclidine Negative 25 ng/mL AMPHETAMINE QUAL, URINE Presumptive Positive [facility] BARBITURATE QUAL, URINE Negative [facility] BENZODIAZEPINE QUAL, URINE Negative [facility] CANNABINOIDS QUAL, URINE Negative [facility] COCAINE QUAL URINE Negative [facility] OPIATE QUAL, URINE Negative [facility] PCP QUAL, URINE Negative [facility] Urine specimen (specimen) 01/14/2008 11:00 AM CDT 01/14/2008 11:56 AM CDT us Nuvia Zapata MD URINE ORDERABLES Edited [facility] [address] [place] [address] documented in this encounter Visit Diagnoses Diagnosis Supervision of other normal documented in this encounter Care Teams Vegetable Farmer Relationship Specialty Start Date End Date Conversion, History PCP - General 07/31/07 05/07/19 documented as of this encounter
--- OUTSIDE RECORDS SUMMARY | 2025-05-25 23:22 | XMS_ITS | Encounter Summary ---
Author Organization [facility] Address [address] [place] [address] Care Team Providers Care Oven Press Tender Name Role Phone Conversion, History Primary Care Provider Leslye hopper Encounter Details Date Type Department Care Team (Latest Contact Info) Description 10/31/2001 Inpatient Historical [facility] PATIENT IN A BED Mariano Urbina VOMIT OF PG NOS-ANTEPART (Primary Dx) Social History Tobacco Use Types Packs/Day Years Used Date Smoking Tobacco: Never Assessed Comments Unknown Sex and Gender Information Value Date Recorded Sex Assigned at Not on file Legal Sex Female 3:46 AM CLAIM REPRESENTATIVE Gender Identity Not on file Sexual Orientation Not on file documented as of this encounter Plan of Treatment Not on file documented as of this encounter Visit Diagnoses Diagnosis Unspecified vomiting of , antepartum- Primary documented in this encounter Care Teams Oven Press Tender Relationship Specialty Start Date End Date Conversion, History PCP - General 07/31/07 05/07/19 documented as of this encounter
--- OUTSIDE RECORDS SUMMARY | 2025-05-25 23:22 | XMS_ITS | Encounter Summary ---
Author Organization [facility] MICHELLE Henson [facility] Address [address] [place] [address] Care Team Providers Care Supervisor Laboratory Name Role Phone Unavailable Primary Care Provider Unavailabl e Reason for Visit * Reason Onset Date Comments Medication Refill 01/12/2020 Encounter Details Date Type Department Care Team (Late st Contact Info) Description 01/12/2020 Refill [facility] Oncology and Hematology - [place] [address] [facility] [address] [place] [address] Milad Fields MD [address] [facility] [address] [place] [address] 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) Social History Tobacco Use Types Packs/Day Years Used Date Smoking Tobacco: Every Day Cigarettes 0.5 20 Smokeless Tobacco: Never Alcohol Use Standard Drinks/Week Comments Not Currently 0 (1 standard drink = 0.6 oz pur e alcohol) Comments No Sex and Gender Information Value Date Recorded Sex Assigned at Not on file 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
--- OUTSIDE RECORDS SUMMARY | 2025-05-25 23:22 | XMS_ITS | Encounter Summary ---
Author Organization [facility] Address [address] [place] [address] Care Team Providers Care Barrel Tester And Drainer Name Role Phone Conversion, History Primary Care Provider Leslye hopper Encounter Details Date Type Department Care Team (Latest Contact Info) Description 10/09/2001 Outpatient Historical [facility] PATIENT IN A BED Mariano Urbina PLACENTA PREVIA-ANTEPART (Primary Dx) Social History Tobacco Use Types Packs/Day Years Used Date Smoking Tobacco: Never Assessed Comments Unknown Sex and Gender Information Value Date Recorded Sex Assigned at Not on file Legal Sex Female 3:46 AM HAULAGE BOSS Gender Identity Not on file Sexual Orientation Not on file documented as of this encounter Plan of Treatment Not on file documented as of this encounter Visit Diagnoses Diagnosis Placenta previa without hemorrhage, antepartum- Primary documented in this encounter Care Teams Barrel Tester And Drainer Relationship Specialty Start Date End Date Conversion, History PCP - General 07/31/07 05/07/19 documented as of this encounter
--- OUTSIDE RECORDS SUMMARY | 2025-05-25 23:22 | XMS_ITS | Encounter Summary ---
Author Organization [facility] Address [address] [place] [address] Care Team Providers Care Mason Tender Restoration Labor Name Role Phone Conversion, History Primary Care Provider Leslye hopper Encounter Details Date Type Department Care Team (Late st Contact Info) Description 12/27/2001 Outpatient Historical [facility] Maternal and Ground Floor S [facility] [address] [place] [address] Josie Chen MD [address] [place] [address] Social History Tobacco Use Types Packs/Day Years Used Date Smoking Tobacco: Never Assessed Comments Unknown Sex and Gender Information Value Date Recorded Sex Assigned at Not on file Legal Sex Female 3:46 AM MANIFEST CLERK Gender Identity Not on file Sexual Orientation Not on file documented as of this encounter Plan of Treatment Not on file documented as of this encounter Visit Diagnoses Not on filedocumented in this encounter Care Teams Mason Tender Restoration Labor Relationship Specialty Start Date End Date Conversion, History PCP - General 07/31/07 05/07/19 documented as of this encounter
--- OUTSIDE RECORDS SUMMARY | 2025-05-25 23:22 | XMS_ITS | Encounter Summary ---
Author Organization [facility] Address [address] [place] [address] Care Team Providers Care Research Nutritionist Name Role Phone Conversion, History Primary Care Provider Leslye hopper Encounter Details Date Type Department Care Team (Latest Contact Info) Description 12/27/2001 Outpatient Historical [facility] Mariano Urbina SUPERVIS OTHER NORMAL PREG (Primary Dx) Social History Tobacco Use Types Packs/Day Years Used Date Smoking Tobacco: Never Assessed Comments Unknown Sex and Gender Information Value Date Recorded Sex Assigned at Not on file Legal Sex Female 3:46 AM PLASTIC WELDER Gender Identity Not on file Sexual Orientation Not on file documented as of this encounter Plan of Treatment Not on file documented as of this encounter Visit Diagnoses Diagnosis Supervision of other normal - Primary documented in this encounter Care Teams Research Nutritionist Relationship Specialty Start Date End Date Conversion, History PCP - General 07/31/07 05/07/19 documented as of this encounter
--- OUTSIDE RECORDS SUMMARY | 2025-05-25 23:22 | XMS_ITS | Encounter Summary ---
Author Organization [facility] Address [address] [place] [address] Care Team Providers Care Wing Scorer Name Role Phone Unavailable Primary Care Provider Unavailabl e Encounter Details Date Type Department Care Team (Late st Contact Info) Description 04/26/2019 Lab Requisition [facility] Care Pathology Lab [address] [place] [address] Mirtha Aiken MD [address] [place] [address] Social History Tobacco Use Types Packs/Day Years Used Date Smoking Tobacco: Never Assessed Comments Unknown Sex and Gender Information Value Date Recorded Sex Assigned at Not on file Legal Sex Female 5:34 AM RESEARCH EXECUTIVE Gender Identity Not on file Sexual Orientation Not on file documented as of this encounter Plan of Treatment Not on file documented as of this encounter Procedures Procedure Name Priority Date/Time Associated Diagnosis Comments PATHOLOGY TISSUE Routine 04/24/2019 1:44 PM CDT documented in this encounter Results * PATHOLOGY TISSUE (04/24/2019 1:44 PM CDT) Case Report Surgical Pathology Report Case: [id number] Authorizing Provider: Mirtha Aiken MD Collected: 04/24/2019 01:44 PM Pathologist: Kaela Knapp MD Received: 04/26/2019 12:13 PM Specimen: Lymph Node Biopsy, [id number] 04/29/2019 9:01 AM CDT [facility] Final Diagnosis Lymph node, left neck, needle core biopsy: - Classic Hodgkin lymphoma. - See description. 04/29/2019 9:01 AM CDT [facility] at 0901 CDT Microscopic Description and Comment The left neck lymph node needle core biopsy shows thin cords of jude tissue. There is a vaguely nodular pattern to the cells, most of which are small mature lymphocytes. A few thick bands of fibrosis are present. Scattered throughout are Hodgkin and occasional Kavin-Abhinav cells, many with lacunar cell morphology. To further evaluate these atypical cells, immunohistochemistry and in situ hybridization, all with appropriately reactive controls, is performed in the [facility] Department of Pathology. The large cells show membraneous and Golgi pattern staining for both CD30 and CD15. PAX-5 is very weakly expressed by these cells, while normal staining intensity is noted in the background smaller B-cells. CD20 and CD3 highlight small B-cells and T-cells, respectively, with no staining in the large cells. In situ hybridization for Gardenia-Black virus is negative. Per report, flow cytometry ([facility] [address], [place] [address], [id number]) shows atypical findings with an increased proportion of T-cells described that show relatively bright CD38 and an increased CD4:CD8 ratio of 9:1. B-cells are reported to be polyclonal. In summary, the left neck lymph node shows involvement by classic Hodgkin lymphoma. Further subclassification is not recommended to be performed on needle core biopsies; however, the morphologic features in this case mostly favor the nodular sclerosis subtype of this entity. Clinical correlation is required. KR 04/29/2019 9:01 AM [facility] Clinical History 38 year old woman with lymphadenopathy. 04/29/2019 9:01 AM [facility] Disclaimer The performance characteristics of all immunohistochemical and indirect immunofluorescence stains (if any) cited in this report were determined by the Histopathology Laboratory of [facility]. Some of these tests were developed by our own laboratory and have not been cleared or approved by the US Food and Drug Administration. The FDA does not require this test to go through premarket FDA review. These tests are used for clinical purposes. They should not be regarded as investigational or for research. This laboratory is certified under the Clinical Laboratory Improvement Amendments (CLIA) as qualified to perform high complexity clinical laboratory testing. This case has been personally reviewed and interpreted by the attending (teaching) pathologist. 04/29/2019 9:01 AM [facility] Embedded Images 04/29/2019 9:01 AM [facility] Pathology/Cytolo gy BIOPSY OF LYMPH NODE / Unknown 04/24/2019 1:44 PM CDT 04/26/2019 12:13 PM CDT us Mirtha Aiken MD LAB - PATHOLOGY/CYTOLOGY ORDERAB LES Final Result Performing Organization Address City/State/[facility] Co de Phone Number [facility] [address] [phone] documented in this encounter Visit Diagnoses Not on filedocumented in this encounter
--- OUTSIDE RECORDS SUMMARY | 2025-05-25 23:22 | XMS_ITS | Encounter Summary ---
Author Organization [facility] Address [address] [place] [address] Care Team Providers Care Field Return Repairer Name Role Phone Conversion, History Primary Care Provider Leslye hopper Encounter Details Date Type Department Care Team (Latest Contact Info) Description 11/11/2001 Outpatient Historical [facility] Mariano Urbina SUPRV HIGH-RISK PREG NOS (Primary Dx) Social History Tobacco Use Types Packs/Day Years Used Date Smoking Tobacco: Never Assessed Comments Unknown Sex and Gender Information Value Date Recorded Sex Assigned at Not on file Legal Sex Female 3:46 AM CASE MONITOR Gender Identity Not on file Sexual Orientation Not on file documented as of this encounter Plan of Treatment Not on file documented as of this encounter Visit Diagnoses Diagnosis Unspecified high-risk - Primary documented in this encounter Care Teams Field Return Repairer Relationship Specialty Start Date End Date Conversion, History PCP - General 07/31/07 05/07/19 documented as of this encounter
--- OUTSIDE RECORDS SUMMARY | 2025-05-25 23:22 | XMS_ITS | Encounter Summary ---
Author Organization [facility] Address [address] [place] [address] Care Team Providers Care Algologist Name Role Phone Conversion, History Primary Care Provider Leslye hopper Encounter Details Date Type Department Care Team (Latest Contact Info) Description 10/10/2001 Outpatient Historical [facility] Mariano Urbina SUPRV HIGH-RISK PREG NOS (Primary Dx) Social History Tobacco Use Types Packs/Day Years Used Date Smoking Tobacco: Never Assessed Comments Unknown Sex and Gender Information Value Date Recorded Sex Assigned at Not on file Legal Sex Female 3:46 AM RENEWABLE ENERGY CONSULTANT Gender Identity Not on file Sexual Orientation Not on file documented as of this encounter Plan of Treatment Not on file documented as of this encounter Visit Diagnoses Diagnosis Unspecified high-risk - Primary documented in this encounter Care Teams Algologist Relationship Specialty Start Date End Date Conversion, History PCP - General 07/31/07 05/07/19 documented as of this encounter
--- OUTSIDE RECORDS SUMMARY | 2025-05-25 23:22 | XMS_ITS | Encounter Summary ---
Author Organization [facility] Address 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
--- OUTSIDE RECORDS SUMMARY | 2025-05-25 23:22 | XMS_ITS | Encounter Summary ---
Author Organization [facility] MICHELLE Henson [facility] Address [address] [place] [address] Care Team Providers Care Fire Marshal Refinery Name Role Phone Unavailable Primary Care Provider Unavailabl e Reason for Visit * Reason Onset Date Comments Medication Refill 01/11/2020 Encounter Details Date Type Department Care Team (Late st Contact Info) Description 01/11/2020 Refill [facility] Oncology and Hematology - [place]ienvenido [address] [facility] [address] [place] [address] Milad Fields MD [address] [facility] [address] [place] [address] Other classical Hodgkin lymphoma of [...] on file Legal Sex Female 3:46 AM FLUME TENDER Gender Identity Not on file Sexual Orientation Not on file documented as of this encounter Plan of Treatment Not on file documented as of this encounter Visit Diagnoses Diagnosis 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
--- OUTSIDE RECORDS SUMMARY | 2025-05-25 23:22 | XMS_ITS | Clinical Summary ---
Author Organization [facility] Address [facility] [place] [address] Care Team Providers Care Cured Meats Supervisor Name Role Phone Edward Mayen MD Primary Care Provider [phone] Allergies Active Allergy Reactions Criticality Noted Date Comments Cefazolin Nausea and Vomiting 11/06/2022 Clindamycin Anaphylaxis High 06/06/2019 Penicillins Anaphylaxis High 06/06/2019 Medications doxycycline hyclate (VIBRAMYCIN) 100 MG capsule Take 100 mg by mouth 2 (two) times daily. Active meclizine (ANTIVERT) 25 MG tablet Take 25 mg by mouth 3 (three) times daily as needed. Active esomeprazole (NEXIUM) 20 MG capsule Take 20 mg by mouth every morning before breakfast. Active acetaminophen (TYLENOL) 325 MG tablet Take 650 mg by mouth every 8 (eight) hours as needed for Pain. Active triamcinolone (KENALOG) 0.1 % cream Apply topically 2 (two) times daily. Do not use for more than one week 60 g 3 Active clotrimazole (LOTRIMIN) 1 % cream Apply topically 2 (two) times daily. 60 g 1 3 Active famotidine (PEPCID) 20 MG tablet Take 1 tablet (20 mg total) by mouth 2 (two) times daily as needed. 20 tablet 4 Active benzonatate (TESSALON PERLES) 100 MG capsule Take 1 capsule (100 mg total) by mouth 3 (three) times daily as needed. 15 capsule 4 Active ondansetron (ZOFRAN-ODT) 4 MG disintegrating tablet Take 1 tablet (4 mg total) by mouth every 8 (eight) hours as needed. 10 tablet Active Social History Tobacco Use Types Packs/Day Years Used Date Smoking Tobacco: Every Day Cigarettes Smokeless Tobacco: Never Tobacco Cessation:Ready to Q uit: Not Asked; Counseling Given: Not Answered Alcohol Use Standard Drinks/Week Comments No 0 (1 standard drink = 0.6 oz pur e alcohol) Comments No Sex and Gender Information Value Date Recorded Sex Assigned at Not on file Legal Sex Female 8:28 PM CDT Gender Identity Not on file Sexual Orientation Not on file Last Filed Vital Signs Vital Sign Reading Time Taken Comments Blood Pressure 122/89 10/06/2024 2:08 PM WHARF TENDER HEAD Pulse 107 10/06/2024 2:08 PM WHARF TENDER HEAD Temperature 36.4 C (97.5 F) 10/06/2024 10:58 AM WHARF TENDER HEAD Respiratory Rate 18 10/06/2024 2:08 PM WHARF TENDER HEAD Oxygen Saturation 100% 10/06/2024 2:08 PM WHARF TENDER HEAD Inhaled Oxygen Concentration - - Weight 90.8 kg (200 lb 2.8 oz) 10/06/2024 10:58 AM WHARF TENDER HEAD Height 160 cm (5' 3) 10/06/2024 10:58 AM WHARF TENDER HEAD Body Mass Index 35.46 10/06/2024 10:58 AM WHARF TENDER HEAD Plan of Treatment Health Maintenance Due Date Last Done Comments Cervical Cancer Screening Pa p Smear (Age 30 to 64) Every 3 Years 1982 Annual Physical 1985 COVID-19 Vaccine (#1) 1987 Hepatitis C 2000 DTaP, Tdap and Td Vaccines ( 1 - Tdap) 2001 Hepatitis B Vaccines (1 of 3 - 19+ 3-dose series) 2001 Pneumococcal Vaccine: Pediat rics (0 to 5 Years) and At-Risk Patients (6 to 49 Years) (1 of 2 - PCV) 2001 HPV Vaccines (1 - 3-dose SCD M series) 2009 Cervical Cancer Screening Pa p with HPV Testing (Age 30 to 64) Every 5 Years 2012 Cervical Cancer Screening with HPV 2012 Mammogram Screening 2022 Meningococcal B Vaccine Aged Out No l onger eligible based on patient's age to complete this topic Meningococcal Vaccine Aged Out No theo rogelio eligible based on patient's age to complete this topic RSV Immunizations Under 20 Months Aged Out No longer eligible based on patient's age to complete this topic Insurance [facility] Care Teams Cured Meats Supervisor Relationship Specialty Start Date End Date Edward Mayen MD [address] [place] [address] PCP - General INTERNAL MEDICINE HEMATOLOGY & ONCOLOGY 08/14/24
--- OUTSIDE RECORDS SUMMARY | 2025-05-25 23:22 | XMS_ITS | Encounter Summary ---
Author Organization [facility] Address [address] [place] [address] Care Team Providers Care Metal Window Screen Assembler Name Role Phone Conversion, History Primary Care Provider Leslye hopper Encounter Details Date Type Department Care Team (Late st Contact Info) Description 05/03/2006 Outpatient Historical [facility] [address] [place] [address] [address] [place] [address] Deandre Grimaldo MD [address] [place] [address] [address] [place] [address] Social History Tobacco Use Types Packs/Day Years Used Date Smoking Tobacco: Never Assessed Comments Unknown Sex and Gender Information Value Date Recorded Sex Assigned at Not on file Legal Sex Female 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
--- OUTSIDE RECORDS SUMMARY | 2025-05-25 23:22 | XMS_ITS | Encounter Summary ---
Author Organization [facility] Address [address] [place] [address] Care Team Providers Care Mold Cooler Name Role Phone Conversion, History Primary Care Provider Leslye hopper Encounter Details Date Type Department Care Team (Late st Contact Info) Description 05/01/2006 Emergency [facility] Criselda Brand MD [address] [place] [address] [place] [address] Unspecified Internal Derangement of Knee (Primary Dx) Social History Tobacco Use Types Packs/Day Years Used Date Smoking Tobacco: Never Assessed Comments Unknown Sex and Gender Information Value Date Recorded Sex Assigned at Not on file Legal Sex Female 3:46 AM CLIENT REPRESENTATIVE Gender Identity Not on file Sexual Orientation Not on file documented as of this encounter Plan of Treatment Not on file documented as of this encounter Visit Diagnoses Diagnosis Unspecified internal derangement of knee- Primary documented in this encounter Care Teams Mold Cooler Relationship Specialty Start Date End Date Conversion, History PCP - General 07/31/07 05/07/19 documented as of this encounter
--- OUTSIDE RECORDS SUMMARY | 2025-05-25 23:22 | XMS_ITS | Encounter Summary ---
Author Organization [facility] MICHELLE Henson [facility] Address [address] [place] [address] Care Team Providers Care Residential Finish Carpenter Name Role Phone Unavailable Primary Care Provider Unavailabl e Reason for Visit * Reason Onset Date Comments Medication Refill 01/08/2020 Encounter Details Date Type Department Care Team (Late st Contact Info) Description 01/08/2020 Refill [facility] Oncology and Hematology - Bienvenido [address] [facility] [address] [place] [address] Milad Fields MD [address] [facility] [address] [place] [address] Other classical Hodgkin lymphoma of [...] on file 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
--- OUTSIDE RECORDS SUMMARY | 2025-05-25 23:22 | XMS_ITS | Encounter Summary ---
Author Organization [facility] Address [address] [place] [address] Care Team Providers Care Internal Control Specialist Name Role Phone Conversion, History Primary Care Provider Leslye hopper Encounter Details Date Type Department Care Team (Late st Contact Info) Description 12/06/1998 Emergency [facility] Baldemar Richardson MD NO ADDRESS ON FILE Er, Authorized P NO ADDRESS ON FILE Other, mixed, or unspecified nondependent drug abuse, unspecified (Primary Dx) Social History Tobacco Use Types Packs/Day Years Used Date Smoking Tobacco: Never Assessed Comments Unknown Sex and Gender Information Value Date Recorded Sex Assigned at Not on file 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
--- OUTSIDE RECORDS SUMMARY | 2025-05-25 23:22 | XMS_ITS | Encounter Summary ---
Author Organization [facility] Address [address] [place] [address] Care Team Providers Care Bag Sorter Name Role Phone Conversion, History Primary Care Provider Leslye hopper Encounter Details Date Type Department Care Team (Latest Contact Info) Description 09/23/2001 Outpatient Historical HIS PATIENT IN A BED Mariano Urbina OTHER CURR COND-ANTEPARTUM (Primary Dx) Social History Tobacco Use Types Packs/Day Years Used Date Smoking Tobacco: Never Assessed Comments Unknown Sex and Gender Information Value Date Recorded Sex Assigned at Not on file Legal Sex Female 3:46 AM CLERICAL AIDE Gender Identity Not on file Sexual Orientation Not on file documented as of this encounter Plan of Treatment Not on file documented as of this encounter Visit Diagnoses Diagnosis Other current maternal conditions classifiable elsewhere, antepartum- Primary documented in this encounter Care Teams Bag Sorter Relationship Specialty Start Date End Date Conversion, History PCP - General 07/31/07 05/07/19 documented as of this encounter
--- OUTSIDE RECORDS SUMMARY | 2025-05-25 23:22 | XMS_ITS | Encounter Summary ---
Author Organization [facility] Address 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
--- OUTSIDE RECORDS SUMMARY | 2025-05-25 23:22 | XMS_ITS | Clinical Summary ---
Author Organization [facility] Address [address] [place] [address] Care Team Providers Care Type Casting Machine Operator Name Role Phone Unavailable Primary Care Provider Unavailabl e Source Comments [facility],non-owned Affiliates and Associated Physician Practices is amultiple site organization consisting of ambulatory clinics and hospital sitesin [place], [place], [place] and [place]. This disclosure is being madepursuant to the Care Everywhere program and may not contain all information available regarding this patient. Last updated 18.[facility] Social History Tobacco Use Types Packs/Day Years Used Date Smoking Tobacco: Never Assessed Comments Unknown Sex and Gender Information Value Date Recorded Sex Assigned at Not on file Legal Sex Female 5:34 AM PHARMACIST APPRENTICE Gender Identity Not on file Sexual Orientation Not on file Plan of Treatment Health Maintenance Due Date Last Done Comments LIPID TESTING 1982 MAMMOGRAM 1982 HIV SCREENING 1997 HEPATITIS C SCREENING 10/06/2000 DTAP/TDAP/TD VACCINES (1 - Tdap) 2001 HEPATITIS B VACCINE (1 of 3 - 19+ 3-dose series) 2001 HPV VACCINE (1 - 3-dose SCDM series) 2009 COVID-19 VACCINE ( - 2023-2 5 season) 2024 DEPRESSION SCREENING 10/30/2024 INFLUENZA VACCINE (#1) 2025 ZOSTER VACCINE (1 of 2) 2032 HIB VACCINE Aged Out No longer eligi ble based on patient's age to complete this topic MENINGOCOCCAL (Group B) VACC INE SHARED DECISION-MAKING Aged Out No longer eligibl e based on patient's age to complete this topic MENINGOCOCCAL GROUPS A/C/Y/W VACCINE Aged Out No longer eligible b ased on patient's age to complete this topic PNEUMOCOCCAL VACCINE Aged Out No long er eligible based on patient's age to complete this topic Insurance [facility]
--- OUTSIDE RECORDS SUMMARY | 2025-05-25 23:22 | XMS_ITS | Encounter Summary ---
Author Organization [facility] Address [address] [place] [address] Care Team Providers Care Collar Baster Name Role Phone Unavailable Primary Care Provider Unavailabl e Encounter Details Date Type Department Care Team (Late st Contact Info) Description 06/26/2019 Chart Note [facility] Radiation Therapy [address] [place] [address] [place] [address] [place] [address] Social History Tobacco Use Types Packs/Day Years Used Date Smoking Tobacco: Every Day Cigarettes 0.5 20 Smokeless Tobacco: Never Alcohol Use Standard Drinks/Week Comments Not Currently 0 (1 standard drink = 0.6 oz pur e alcohol) Comments No Sex and Gender Information Value Date Recorded Sex Assigned at Not on file Legal Sex Female 3:46 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
--- OUTSIDE RECORDS SUMMARY | 2025-05-25 23:22 | XMS_ITS | Clinical Summary ---
Author Organization [facility] Address [address] [place] [address] Phone Care Team Providers Care Safety Counselor Name Role Phone Provider, Not On File Primary Care Provider Unav ailable Edward Mayen MD Unavailable Allergies Active Allergy Reactions Criticality Noted Date Comments Cefazolin Nausea,Vomiting 07/31/2024 Clindamycin Anaphylaxis 07/31/2024 Penicillins Anaphylaxis 07/31/2024 Medications ondansetron (ZOFRAN-ODT) 4 MG TABLET DISPERSIBLE DISSOLVE 1 TABLET ON TOP OF THE TONGUE AND SWALLOW EVERY 8 HOURS NEEDED FOR NAUSEA AND VOMITING Active aspirin EC 81 MG Tablet Delayed Response Take 81 mg by mouth daily. Active Meclizine HCl (ANTIVERT PO) Take by mouth. Active Esomeprazole Magnesium (NEXIUM PO) Take by mouth. Active Active Problems No known active problems Family History Medical History Relation Name Comments ADD / ADHD Child 3 Dementia Father Psoriasis Father Stroke Mother Cancer Sister cervical Relation Name Status Comments Brother Alive Child 1 Alive Child 2 Alive Child 3 Alive Father Alive Mother Sister Alive Social History Tobacco Use Types Packs/Day Years Used Date Smoking Tobacco: Every Day Cigarettes Smokeless Tobacco: Never Tobacco Cessation:Ready to Q uit: Yes; Counseling Given: Yes Alcohol Use Standard Drinks/Week Comments Never 0 (1 standard drink = 0.6 oz pur e alcohol) Comments Unknown Sex and Gender Information Value Date Recorded Sex Assigned at Female 02/06/2025 9:53 PM CDT Legal Sex Female 12:04 PM CDT Gender Identity Female 02/06/2025 9:53 PM CDT Sexual Orientation Straight 02/06/2025 9: 53 PM CDT Last Filed Vital Signs Vital Sign Reading Time Taken Comments Blood Pressure 122/82 02/18/2025 2:22 PM CDT Pulse 111 02/18/2025 2:22 PM CDT Temperature 36.8 C (98.2 F) 02/18/2025 2:22 PM CDT Respiratory Rate 18 02/18/2025 2:22 PM CDT Oxygen Saturation 98% 02/18/2025 2:22 PM CDT Inhaled Oxygen Concentration - - Weight 88.4 kg (194 lb 12.8 oz) 02/18/2025 2:22 PM CDT Height 160 cm (5' 3) 02/18/2025 2:22 PM CDT Body Mass Index 34.51 02/18/2025 2:22 PM CDT Plan of Treatment Upcoming Encounters Date Type Department Care Team (Late st Contact Info) Description 07/30/2025 11:00 AM CDT Lab [facility] [address] [address] Lab, [facility] 07/30/2025 11:15 AM CDT Office Visit [facility] [address] [address] Edward Mayen MD [address] [place] [address] 08/12/2025 8:15 AM CDT Lab [facility] [address] [address] Lab, [facility] 08/12/2025 8:30 AM CDT Ancillary Procedure [facility] [address] [address] 08/19/2025 1:00 PM CDT Office Visit [facility] [address] [address] Edward Mayen MD [address] [place] [address] Health Maintenance Due Date Last Done Comments Hepatitis C Virus (HCV) Screening 1982 Mammogram 1982 TdaP Immunization 1982 SARS-COV-2 Immunization (#1) 1987 Hepatitis B Immunization (1 of 3 - 19+ 3-dose series) 2001 Pneumococcal Immunization Co mbined (1 of 2 - PCV) 2001 Pap Smear 2003 Cervical Cancer Screening (CCS) 2012 HPV/Cotest 2012 Discussion re Starting/Frequ ency of Mammograms 2022 Influenza Immunization (#1) 2025 Respiratory Syncytial Virus (RSV) Immunization (Adult) (1 - 1-dose 75+ series) 2057 Human Papillomavirus (HPV) Immunization Aged Out No longer eligible b ased on patient's age to complete this topic Meningococcal Immunization (ACWY) Aged Out No longer eligible based on patient's age to complete this topic Rotavirus Immunization Aged Out No lo nger eligible based on patient's age to complete this topic Insurance [place] [id number] Care Teams Safety Counselor Relationship Specialty Start Date End Date Provider, Not On File [place] PCP - General 07/31/24 Edward Mayen MD [address] [place] [id number] Consulting Physician Oncology 08/05/24
--- OUTSIDE RECORDS SUMMARY | 2025-05-25 23:22 | XMS_ITS | Encounter Summary ---
Author Organization [facility] Address 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
[2025-05-25 23:33] VITALS: TEMP 36.8
[2025-05-25 23:54] LABS: BEDSIDEPREGUCG Negative (Negative)
[2025-05-26 00:05] LABS: Hematocrit 43.5 % (37.0-47.0); Hemoglobin 14.0 g/dL (12.0-15.0); Immature Granulocyte Percent A 0.3 % (0-0.5); Lymphocytes Absolute Auto 4.68 K/mm3 (0.9-3.2); Mean Corpuscular HGB Conc 32.2 g/dl (32-36); Mean Corpuscular Hemoglobin 29.9 pg (26-34); Mean Corpuscular Volume 92.8 fl (80-100); Nucleated Red Blood Cells Absolute Auto 0.000 K/mm3 (0.0-0.012); Nucleated Red Blood Cells Perc 0.0 % (0.0-0.2); Platelet Count Result 289 k/mm3 (150-375); Red Blood Count 4.69 M/mm3 (4.2-5.4); White Blood Count 13.1 K/mm3 (4.5-10.0)
[2025-05-26] MEDS: MORPHINE SULFATE (*CRX) 2 MG/ML INJ IV PUSH (00:07)
[2025-05-26 00:17] LABS: Alanine Aminotransferase 24 U/L (6-35); Albumin Level 4.0 g/dL (3.5-5.1); Alkaline Phosphatase 92 U/L (38-126); Anion Gap 6 mmol/L (4-12); Aspartate Amino Transferase 28 U/L (14-36); Bilirubin,Total 0.3 mg/dL (0.2-1.3); Blood Urea Nitrogen 10 mg/dL (7-17); Calcium 9.3 mg/dL (8.4-10.2); Carbon Dioxide 25 mmol/L (22-30); Chloride 102 mmol/L (98-107); Estimated CRCL calculation 105 ml/min; Estimated Glomerular Filt Rate > 60; Glucose 129 mg/dL (65-110); Lipase 64 U/L (23-300); Potassium 4.0 mmol/L (3.4-5.0); Sodium 133 mmol/L (137-145); Total Protein 7.6 g/dL (6.3-8.2)
--- OUTSIDE RECORDS SUMMARY | 2025-05-26 00:32 | XMS_ITS | Encounter Summary ---
Author Organization [facility] Address 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
--- OUTSIDE RECORDS SUMMARY | 2025-05-26 00:32 | XMS_ITS | Encounter Summary ---
Author Organization [facility] Address [address] [place] [address] Care Team Providers Care Toolsmith Name Role Phone Conversion, History Primary Care Provider Leslye hopper Encounter Details Date Type Department Care Team (Late st Contact Info) Description 01/14/2008 Outpatient Historical [facility] [address] [place] [phone] Nuvia Zapata MD [address] [place] [phone] Social History Tobacco Use Types Packs/Day Years Used Date Smoking Tobacco: Never Assessed Comments Unknown Sex and Gender Information Value Date Recorded Sex Assigned at Not on file Legal Sex Female 3:46 AM SHUTDOWN COORDINATOR Gender Identity Not on file Sexual Orientation Not on file documented as of this encounter Plan of Treatment Not on file documented as of this encounter Visit Diagnoses Not on filedocumented in this encounter Care Teams Toolsmith Relationship Specialty Start Date End Date Conversion, History PCP - General 07/31/07 05/07/19 documented as of this encounter
--- OUTSIDE RECORDS SUMMARY | 2025-05-26 00:32 | XMS_ITS | Encounter Summary ---
Author Organization [facility] Address [address] [place] [address] Care Team Providers Care Supervisor Claims Name Role Phone Conversion, History Primary Care [...] on file Legal Sex Female 3:46 AM TECHNICAL AID Gender Identity Not on file Sexual Orientation [...] INTERFACE SYSTEM 07/04/2007 10:1 5 AM CDT [facility] CHEMISTRY ORDERABLES Edited Performing Organization Address [facility] Phone Number INTERFACE SYSTEM Refer to clinic/hospital [...] INTERFACE SYSTEM 07/04/2007 10:1 5 AM CDT [facility] ORDERABLES Edited Performing Organization Address [facility] Phone Number INTERFACE SYSTEM Refer to clinic/hospital [...] Primary documented in this encounter Care Teams Supervisor Claims Relationship Specialty Start Date End Date Conversion, History PCP - General 07/31/07 05/07/19 documented as of this encounter
--- OUTSIDE RECORDS SUMMARY | 2025-05-26 00:32 | XMS_ITS | Encounter Summary ---
Author Organization [facility] Address 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 IF ACUTE HIV INFECTION IS SUSPECTED, ANTIBODY RETESTING AND NUCLEIC ACID AMPLIFICATION (HIV DNA/RNA) TESTING IS RECOMMENDED. Lab test performed by: [facility] [id number] [place] [address] ROXANA RIVERA MD Effective April 02, 2007, HIV 1/2 Antibody Screen with Reflexed Confirmation has replaced HIV-1 Antibody Screen. HIV-1 Antibody Screen is no longer offered due to lack of available kits from the registered nurse. Blood specimen (specimen) 01/14/2008 11:50 AM CDT 01/14/2008 11:55 AM CDT us Nuvia Zapata MD CHEMISTRY ORDERABLES Final Re sult [facility] [address] [place] [address] * (ABNORMAL) CBC WITH DIFFERENTIAL (01/14/2008 11:50 AM CDT) WBC 13.3(H) 4.0 - 9.8 K/uL [facility] MPV 9.4 9.3 - 12.4 fL [facility] MCH 30.3 27.2 - 32.6 pg [facility] HEMATOCRIT 40.2 35.5 - 44.0 % [facility] RDW-STDEV 44.8 37.1 - 48.7 fL [facility] RBC 4.39 3.90 - 4.90 M/uL [facility] MCHC 33.1 31.5 - 35.5 % [facility] MCV 91.6 82.0 - 99.0 fL [facility] PLATELETS 329 140 - 350 K/uL [facility] HEMOGLOBIN 13.3 11.8 - 14.8 g/dL [facility] RDW 13.6 11.5 - 14.5 % [facility] NEUTROPHILS 65 45 - 70 % [facility] NEUTROPHIL ABSOLUTE 8.67(H) 1.90 - 7.00 K/uL [facility] EOSINOPHILS 1 0 - 7 % [facility] EOSINOPHIL ABSOLUTE 0.06 0.00 - 0.70 K/uL [facility] LYMPHOCYTES 28 16 - 45 % [facility] LYMPHOCYTE ABSOLUTE 3.66 0.70 - 4.50 K/uL [facility] BASOPHILS 0 0 - 2 % [facility] BASOPHILS ABSOLUTE 0.02 0.00 - 0.20 K/uL [facility] MONOCYTES 6 3 - 13 % [facility] MONOCYTE ABSOLUTE 0.85 0.10 - 1.30 K/uL [facility] Blood specimen (specimen) 01/14/2008 11:50 AM CDT 01/14/2008 11:55 AM CDT Nuvia Zapata MD HEMATOLOGY ORDERABLES Edited Performing Organization Address [facility] Co de Phone Number [facility] [address] [place] [address] * HEPATITIS B SURFACE ANTIGEN (01/14/2008 11:50 AM CDT) HEPATITIS B SURFACE AG NON-REACTI VE NON-REACT DESIRE [facility] Comment: Lab test performed by: [facility] [address] [employer] [id number] ROXANA RIVERA MD Blood specimen (specimen) 01/14/2008 11:50 AM CDT 01/14/2008 11:55 AM CDT Nuvia Zapata MD CHEMISTRY ORDERABLES Final Re sult Performing Organization Address [facility] Co de Phone Number [facility] [address] [place] [address] * RUBELLA IGG (01/14/2008 11:50 AM CDT) RUBELLA IGG 2.66 EIA Value [facility] Comment: EIA VALUE EXPLANATION OF TEST RESULTS --------- <0.91 NEGATIVE - NO RUBELLA IGG ANTIBODY DETECTED. 0.91 - 1.09 EQUIVOCAL > OR = 1.10 POSITIVE - RUBELLA IGG ANTIBODY DETECTED. THE PRESENCE OF RUBELLA IGG ANTIBODY SUGGESTS IMMUNIZATION OR PAST OR CURRENT INFECTION WITH RUBELLA VIRUS. Lab test performed by: [facility] [address] [id number] ROXANA RIVERA MD Blood specimen (specimen) 01/14/2008 11:50 AM CDT 01/14/2008 11:55 AM CDT Nuvia Zapata MD CHEMISTRY ORDERABLES Final Re sult Performing Organization Address [facility] de Phone Number [facility] [address] [place] [address] * RPR (01/14/2008 11:50 AM CDT) Pathologist [facility] RPR NON-REACTI VE NON-REACT DESIRE [facility] Comment: Lab test performed by: [facility] [id number] [employer] [id number] ROXANA RIVERA MD Blood specimen (specimen) 01/14/2008 11:50 AM CDT 01/14/2008 11:55 AM CDT Nuvia Zapata MD CHEMISTRY ORDERABLES Final Re sult Performing Organization Address [facility] de Phone Number [facility] [address] [place] [address] * TSH WITH REFLEX FT4 AND FT3 (01/14/2008 11:50 AM CDT) [facility] TSH 2.33 0.27 - 4.20 uU/mL [facility] Blood specimen (specimen) 01/14/2008 11:50 AM CDT 01/14/2008 11:55 AM CDT Nuvia Zapata MD CHEMISTRY ORDERABLES Final Re sult Performing Organization Address [facility] de Phone Number [facility] [address] [place] [address] * HEPATITIS C AB WITH CONFIRMATION BY RIBA (01/14/2008 11:50 AM CDT) Pathologist [facility] SIGNAL TO CUT OFF 0.07 <1.00 [facility] Comment: Lab test performed by: [employer] [address] [employer] [address] ROXANA RIVERA MD HEPATITIS C AB NON-REACTI VE NON-REACT DESIRE [facility] Blood specimen (specimen) 01/14/2008 11:50 AM CDT 01/14/2008 11:55 AM CDT us Nuvia Zapata MD CHEMISTRY ORDERABLES Final Re sult Performing Organization Address City/State/[facility] Co de Phone Number [facility] [address] [place] [address] * (ABNORMAL) URINALYSIS (01/14/2008 11:00 AM CDT) PH UA 8.0 5.0 - 8.0 [facility] KETONES UA Negative Negative [facility] CLARITY UA Cloudy(A) Clear [facility] BLOOD UA Negative Negative [facility] PROTEIN UA Negative Negative [facility] LEUKOCYTE ESTERASE UA Negative Negative [facility] UROBILINOGEN UA 1 <=1 mg/dL [facility] SPECIFIC GRAVITY UA 1.015 1.001 - 1.035 [facility] GLUCOSE UA Negative Negative [facility] COLOR UA Yellow [facility] NITRITE UA Negative Negative [facility] BILIRUBIN UA Negative Negative [facility] AMORPHOUS PHOSPHATES, URINE Moderate /HPF [facility] WBC UA 0-5 0 - 5 /HPF [facility] EPITHELIAL CELLS, URINE 2-5 /HPF [facility] RBC UA 0-2 0 - 2 /HPF [facility] MUCOUS, URINE 3+ [facility] BACTERIA UA 2+(A) None Seen /HPF [facility] MACRO COMMENT Culture in Progress [facility] Urine, clean catch 01/14/2008 11:00 AM CDT 01/14/2008 11:56 AM CDT Nuvia Zapata MD URINE ORDERABLES Edited Performing Organization Address City/[facility] Co de Phone Number [facility] [address] [place] [address] * URINE CULTURE (01/14/2008 11:00 AM CDT) PRELIMINARY REPORT Pending INTERFACE SYSTEM FINAL REPORT >100,000 colonies/mL Polymicrobial growth consistent with normal urethral jose INTERFACE SYSTEM 01/14/2008 11:0 0 AM CDT 01/14/2008 2:33 PM CDT Nuvia Zapata MD MICROBIOLOGY - GENERAL ORDERA BLES Final Result Performing Organization Address [facility] de Phone Number INTERFACE SYSTEM Refer to clinic/hospital department * URINALYSIS WITH REFLEX CULTURE (01/14/2008 11:00 AM CDT) Pathologist [facility] URINE CULTURE ORDER Culture ordered [facility] Comment: Criteria for a reflex culture [...] URINE ORDERABLES Final Result Performing Organization Address [facility] de Phone Number [facility] [address] [place] [address] * DRUG SCREEN, URINE (01/14/2008 11:00 AM CDT) COMMENT, TOXICOLOGY See Separate Comment [facility] Comment: The urine sample was not [...] 25 ng/mL AMPHETAMINE QUAL, URINE Presumptive Positive [facility] BARBITURATE QUAL, URINE Negative [facility] BENZODIAZEPINE QUAL, URINE Negative [facility] CANNABINOIDS QUAL, URINE Negative [facility] COCAINE QUAL URINE Negative [facility] OPIATE QUAL, URINE Negative [facility] PCP QUAL, URINE Negative [facility] Urine specimen (specimen) 01/14/2008 11:00 AM CDT 01/14/2008 11:56 AM CDT us Nuvia Zapata MD URINE ORDERABLES Edited [facility] [address] [place] [address] documented in this encounter Visit Diagnoses Diagnosis Supervision of other normal documented in this encounter Care Teams Manual Arts Teacher Relationship Specialty Start Date End Date Conversion, History PCP - General 07/31/07 05/07/19 documented as of this encounter
--- OUTSIDE RECORDS SUMMARY | 2025-05-26 00:32 | XMS_ITS | Encounter Summary ---
Author Organization [facility] Address 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
--- OUTSIDE RECORDS SUMMARY | 2025-05-26 00:32 | XMS_ITS | Encounter Summary ---
Author Organization [facility] Address [address] [place] [address] Care Team Providers Care Dolphin Trainer Name Role Phone Conversion, History Primary Care Provider Leslye hopper Encounter Details Date Type Department Care Team (Late st Contact Info) Description 12/27/2006 Outpatient Historical [facility] [address] [place] [address] [address] [place] [address] Deandre Grimaldo MD [address] [place] [address] [address] [place] [address] Social History Tobacco Use Types Packs/Day Years Used Date Smoking Tobacco: Never Assessed Comments Unknown Sex and Gender Information Value Date Recorded Sex Assigned at Not on file Legal Sex Female 3:46 AM HAND EDGE BANDER Gender Identity Not on file Sexual Orientation Not on file documented as of this encounter Plan of Treatment Not on file documented as of this encounter Visit Diagnoses Not on filedocumented in this encounter Care Teams Dolphin Trainer Relationship Specialty Start Date End Date Conversion, History PCP - General 07/31/07 05/07/19 documented as of this encounter
--- OUTSIDE RECORDS SUMMARY | 2025-05-26 00:32 | XMS_ITS | Encounter Summary ---
Author Organization [facility] Address 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 Dictated by: RADIOLOGY, DEPARTMENT O Electronically signed by: RADIOLOGY, DEPARTMENT 01/21/2008 12:37 Transcribed: 01/18/2008 10:05 [facility] Admit Date: 01/17/2008 DIAMOND HERBERT Sex: F Admitting MD: NUVIA [place] Birthdate: 1980 numerical analysis group manager:PCP , NONE CMRN:[id number] Room: [facility]: [address] [place] [address] Procedure Note Provider, Historical - 01/21/2008 [place] [address] Imaging Services Procedure Completion Date Ordering Provider AccessionNumber US Preg < 01/17/2008 NUVIA OH [id number] OB 11:43:55 AM Reason for Exam: V22.1 - SUPERVIS OTH NORMAL PREG Interpretation PLEASE SEE REPORT FROM Anselmo IN AWD OR ULTRAVISUAL. Dictated by: RADIOLOGY, DEPARTMENT O Electronically signed by: RADIOLOGY, DEPARTMENT 01/21/2008 12:37 Transcribed: 01/18/2008 10:05 [facility] Admit Date: 01/17/2008 DIAMOND HERBERT Sex: F Admitting MD: NUVIA [place] Birthdate: 1980 numerical analysis group manager:PCP , NONE CMRN:[id number] Room: [facility]: [address] [place] [address] Nuvia Zapata MD ORDERABLES Final Result documented in this encounter Visit Diagnoses Diagnosis Supervision of other normal documented in this encounter Care Teams Rubber Cutter And Shape Carver Relationship Specialty Start Date End Date Conversion, History PCP - General 07/31/07 05/07/19 documented as of this encounter
--- OUTSIDE RECORDS SUMMARY | 2025-05-26 00:32 | XMS_ITS | Encounter Summary ---
Author Organization [employer] [facility] Address [address] [place] [address] Care Team Providers Care Evaluation Assistant Name Role Phone Conversion, History Primary Care Provider Leslye hopper Encounter Details Date Type Department Care Team (Late st Contact Info) Description 09/10/2007 Emergency [facility] Criselda Brand MD [address] [place] [address] [place] [address] Other Tear of Cartilage or Meniscus of Knee, Current (Primary Dx) Social History Tobacco Use Types Packs/Day Years Used Date Smoking Tobacco: Never Assessed Comments Unknown Sex and Gender Information Value Date Recorded Sex Assigned at Not on file 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
--- OUTSIDE RECORDS SUMMARY | 2025-05-26 00:32 | XMS_ITS | Encounter Summary ---
Author Organization [facility] Address [address] [place] [address] Care Team Providers Care Hygiene Teacher Name Role Phone Conversion, History Primary Care Provider Leslye hopper Encounter Details Date Type Department Care Team (Late st Contact Info) Description 01/05/2007 Outpatient Historical [facility] Nuvia Zapata MD [address] [place] [phone] Social History Tobacco Use Types Packs/Day Years Used Date Smoking Tobacco: Never Assessed Comments Unknown Sex and Gender Information Value Date Recorded Sex Assigned at Not on file Legal Sex Female 3:46 AM SUPERVISOR BLASTING Gender Identity Not on file Sexual Orientation Not on file documented as of this encounter Plan of Treatment Not on file documented as of this encounter Visit Diagnoses Not on filedocumented in this encounter Care Teams Hygiene Teacher Relationship Specialty Start Date End Date Conversion, History PCP - General 07/31/07 05/07/19 documented as of this encounter
--- OUTSIDE RECORDS SUMMARY | 2025-05-26 00:32 | XMS_ITS | Encounter Summary ---
Author Organization [employer] [facility] Address [address] [place] [address] Care Team Providers Care Multimedia Services Coordinator Name Role Phone Conversion, History Primary Care Provider Leslye hopper Encounter Details Date Type Department Care Team (Late st Contact Info) Description 10/16/2006 Emergency [facility] Markie House MD [address] [place] [address] Unspecified Backache (Primary Dx) Social History Tobacco Use Types Packs/Day Years Used Date Smoking Tobacco: Never Assessed Comments Unknown Sex and Gender Information Value Date Recorded Sex Assigned at Not on file Legal Sex Female 3:46 AM CONCRETE MIXER Gender Identity Not on file Sexual Orientation Not on file documented as of this encounter Plan of Treatment Not on file documented as of this encounter Visit Diagnoses Diagnosis Backache, unspecified- Primary documented in this encounter Care Teams Multimedia Services Coordinator Relationship Specialty Start Date End Date Conversion, History PCP - General 07/31/07 05/07/19 documented as of this encounter
--- OUTSIDE RECORDS SUMMARY | 2025-05-26 00:32 | XMS_ITS | Encounter Summary ---
Author Organization [facility] Address [address] [place] [address] Care Team Providers Care Licensed Customs Broker Name Role Phone Conversion, History Primary Care Provider Leslye hopper Encounter Details Date Type Department Care Team (Late st Contact Info) Description 12/20/2007 Emergency [facility] WASH Er, Authorized P NO ADDRESS ON FILE Ashleigh Killian MD [address] [place] [address] [place] [address] Social History Tobacco Use Types Packs/Day Years Used Date Smoking Tobacco: Never Assessed Comments Unknown Sex and Gender Information Value Date Recorded Sex Assigned at Not on file Legal Sex Female 3:46 AM VICE PRESIDENT PRECISION MARKET INSIGHTS Gender Identity Not on file Sexual Orientation Not on file documented as of this encounter Plan of Treatment Not on file documented as of this encounter Procedures Procedure Name Priority Date/Time Associated Diagnosis Comments XR KNEE 4+ VW RIGHT Stat 12/20/2007 9 :18 PM VICE PRESIDENT [employer] documented in this encounter Results * XR KNEE 4+ VW RIGHT (12/20/2007 9:18 PM VICE PRESIDENT [employer] INSIGHTS) Anatomical Region Laterality Modality Lower Extremity Other 12/20/2007 9:18 PM VICE PRESIDENT [employer]ET INSIGHTS Narrative 12/20/2007 9:33 PM VICE PRESIDENT [employer]ET INSIGHTS [place] [id number] Imaging Services Procedure Completion Date Ordering Provider Accession Number [id number] 12/20/2007 9:18:29 ASHLEIGH KILLIAN [id number] RIGHT PM Reason for Exam: right knee [...] Admitting MD: VIJI CASTILLO P Birthdate: 1980 sql database administrator:PCP , NONE CMRN:[id number] Room: [facility]: [address] [place] [address] Procedure Note Provider, Historical - 12/20/[address] [address] Imaging Services Procedure Completion Date Ordering Provider AccessionNumber [id number] 12/20/2007 9:18:29 ASHLEIGH [id number] RIGHT PM Reason for Exam: right knee [...] Admitting MD: VIJI CASTILLO P Birthdate: 1980 sql database administrator:PCP , NONE CMRN:[id number] Room: [facility]: [phone] us Ashleigh Killian MD DIAGNOSTIC IMAGING ORDERABLE S Final Result documented in this encounter Visit Diagnoses Not on filedocumented in this encounter Care Teams Licensed Customs Broker Relationship Specialty Start Date End Date Conversion, History PCP - General 07/31/07 05/07/19 documented as of this encounter
--- OUTSIDE RECORDS SUMMARY | 2025-05-26 00:32 | XMS_ITS | Encounter Summary ---
Author Organization [facility] Address [address] [place] [address] Care Team Providers Care Lacer And Tier Name Role Phone Conversion, History Primary Care Provider Leslye hopper Encounter Details Date Type Department Care Team (Late st Contact Info) Description 12/21/2006 Emergency [facility]rawal [facility] [place] [address] Other Specified Noninflammatory Disorder of Vagina (Primary Dx) Social History Tobacco Use Types Packs/Day Years Used Date Smoking Tobacco: Never Assessed Comments Unknown Sex and Gender Information Value Date Recorded Sex Assigned at Not on file Legal Sex Female 3:46 AM BEAM SAW OPERATOR Gender Identity Not on file Sexual Orientation Not on file documented as of this encounter Plan of Treatment Not on file documented as of this encounter Procedures Procedure Name Priority Date/Time Associated Diagnosis Comments CBC WITH DIFFERENTIAL Routine 12/21/2006 10:55 PM BEAM SAW OPERATOR CBC WITH DIFFERENTIAL Routine 12/21/2006 10:55 PM BEAM SAW OPERATOR documented in this encounter Results * CBC WITH DIFFERENTIAL (12/21/2006 10:55 PM BEAM SAW OPERATOR) NEUTROPHILS 58 45 - 70 % INTERFAC [...] K/uL INTERFACE SYSTEM 12/21/2006 10:5 5 PM BEAM SAW OPERATOR Anupam Rizo MD HEMATOLOGY ORDERABLES Edite d Performing Organization Address [facility] [address]/[facility] de Phone Number INTERFACE SYSTEM Refer to clinic/hospital department * (ABNORMAL) CBC WITH DIFFERENTIAL (12/21/2006 10:55 PM BEAM SAW OPERATOR) WBC 12.0(H) 4.0 - 9.8 K/uL INTERFACE [...] fL INTERFACE SYSTEM 12/21/2006 10:5 5 PM BEAM SAW OPERATOR Anupam Rizo MD HEMATOLOGY ORDERABLES Edite d Performing Organization Address [facility] [address]/[facility] de Phone Number INTERFACE SYSTEM Refer to clinic/hospital department documented in this encounter Visit Diagnoses Diagnosis Other specified noninflammatory disorder of vagina- Primary documented in this encounter Care Teams Lacer And Tier Relationship Specialty Start Date End Date Conversion, History PCP - General 07/31/07 05/07/19 documented as of this encounter
--- OUTSIDE RECORDS SUMMARY | 2025-05-26 00:32 | XMS_ITS | Encounter Summary ---
Author Organization [facility] Address 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
--- OUTSIDE RECORDS SUMMARY | 2025-05-26 00:32 | XMS_ITS | Encounter Summary ---
Author Organization [facility] Address [address] [place] [address] Care Team Providers Care Well Service Derrick Worker Name Role Phone Conversion, History Primary Care Provider Leslye hopper Encounter Details Date Type Department Care Team (Late st Contact Info) Description 01/15/2008 Outpatient Historical [facility] [address] [place] [address] [address] [place] [address] Deandre Grimaldo MD [address] [place] [address] [address] [place] [address] Social History Tobacco Use Types Packs/Day Years Used Date Smoking Tobacco: Never Assessed Comments Unknown Sex and Gender Information Value Date Recorded Sex Assigned at Not on file Legal Sex Female 3:46 AM MECHANICAL FITTER Gender Identity Not on file Sexual Orientation Not on file documented as of this encounter Plan of Treatment Not on file documented as of this encounter Visit Diagnoses Not on filedocumented in this encounter Care Teams Well Service Derrick Worker Relationship Specialty Start Date End Date Conversion, History PCP - General 07/31/07 05/07/19 documented as of this encounter
--- OUTSIDE RECORDS SUMMARY | 2025-05-26 00:32 | XMS_ITS | Encounter Summary ---
Author Organization [facility] Address [address] [place] [address] Care Team Providers Care Compliance Manager Name Role Phone Conversion, History Primary Care Provider Leslye hopper Encounter Details Date Type Department Care Team (Late st Contact Info) Description 01/14/2008 Outpatient Historical [facility] [address] [facility] [address] [place] [phone] Nuvia Zapata MD [address] [place] [phone] Social History Tobacco Use Types Packs/Day Years Used Date Smoking Tobacco: Never Assessed Comments Unknown Sex and Gender Information Value Date Recorded Sex Assigned at Not on file Legal Sex Female 3:46 AM PIECE MARKER SMALL ARMS Gender Identity Not on file Sexual Orientation Not on file documented as of this encounter Plan of Treatment Not on file documented as of this encounter Visit Diagnoses Not on filedocumented in this encounter Care Teams Compliance Manager Relationship Specialty Start Date End Date Conversion, History PCP - General 07/31/07 05/07/19 documented as of this encounter
--- OUTSIDE RECORDS SUMMARY | 2025-05-26 00:32 | XMS_ITS | Encounter Summary ---
Author Organization [facility] Address [address] [place] [address] Care Team Providers Care Private Equity Analyst Name Role Phone Conversion, History Primary Care Provider Leslye hopper Encounter Details Date Type Department Care Team (Late st Contact Info) Description 10/28/2006 Emergency [facility] EMERGENCY RO[facility] Luis Jones MD [address] [place] [address] [place] [address] Unspecified Local Infection of Skin and Subcutaneous Tissue (Primary Dx) Social History Tobacco Use Types Packs/Day Years Used Date Smoking Tobacco: Never Assessed Comments Unknown Sex and Gender Information Value Date Recorded Sex Assigned at Not on file Legal Sex Female 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
--- OUTSIDE RECORDS SUMMARY | 2025-05-26 00:33 | XMS_ITS | Encounter Summary ---
Author Organization [facility] Address [address] [place] [address] Care Team Providers Care Bail Bonding Agent Name Role Phone Conversion, History Primary Care [...] on file Legal Sex Female 3:46 AM LEAD INFRASTRUCTURE ARCHITECT Gender Identity Not on file Sexual Orientation Not on file documented as of this encounter Plan of Treatment Not on file documented as of this encounter Visit Diagnoses Diagnosis Unspecified high-risk - Primary documented in this encounter Care Teams Bail Bonding Agent Relationship Specialty Start Date End Date Conversion, History PCP - General 07/31/07 05/07/19 documented as of this encounter
--- OUTSIDE RECORDS SUMMARY | 2025-05-26 00:33 | XMS_ITS | Encounter Summary ---
Author Organization [facility] Address [address] [place] [address] Care Team Providers Care Medical Record Transcriber Name Role Phone Conversion, History Primary Care [...] on file Legal Sex Female 3:46 AM TECHNOLOGY PROFESSIONAL Gender Identity Not on file Sexual Orientation Not on file documented as of this encounter Plan of Treatment Not on file documented as of this encounter Visit Diagnoses Diagnosis Unspecified vomiting of , antepartum- Primary documented in this encounter Care Teams Medical Record Transcriber Relationship Specialty Start Date End Date Conversion, History PCP - General 07/31/07 05/07/19 documented as of this encounter
--- OUTSIDE RECORDS SUMMARY | 2025-05-26 00:33 | XMS_ITS | Encounter Summary ---
Author Organization [facility] Address 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
--- OUTSIDE RECORDS SUMMARY | 2025-05-26 00:33 | XMS_ITS | Encounter Summary ---
Author Organization [facility] Address [address] [place] [address] Care Team Providers Care Cattle Farmer Name Role Phone Conversion, History Primary Care Provider Leslye hopper Encounter Details Date Type Department Care Team (Late st Contact Info) Description 05/01/2006 Emergency [facility] EM[facility]Y RO[facility] Criselda Brand MD [address] [place] [address] [place] [address] Unspecified Internal Derangement of Knee (Primary Dx) Social History Tobacco Use Types Packs/Day Years Used Date Smoking Tobacco: Never Assessed Comments Unknown Sex and Gender Information Value Date Recorded Sex Assigned at Not on file Legal Sex Female 3:46 AM 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
--- OUTSIDE RECORDS SUMMARY | 2025-05-26 00:33 | XMS_ITS | Encounter Summary ---
Author Organization [facility] Address [address] [place] [address] Care Team Providers Care Food Bagging Machine Operator Name Role Phone Conversion, History Primary [...] on file Legal Sex Female 3:46 AM FUR STORAGE CLERK Gender Identity Not on file Sexual Orientation Not on file documented as of this encounter Plan of Treatment Not on file documented as of this encounter Visit Diagnoses Diagnosis Placenta previa without hemorrhage, antepartum- Primary documented in this encounter Care Teams Food Bagging Machine Operator Relationship Specialty Start Date End Date Conversion, History PCP - General 07/31/07 05/07/19 documented as of this encounter
--- OUTSIDE RECORDS SUMMARY | 2025-05-26 00:33 | XMS_ITS | Encounter Summary ---
Author Organization [facility] MICHEL[facility] Address [address] [place] [address] Care Team Providers Care Beater Boss Name Role Phone Unavailable Primary Care Provider Unavailabl e Reason for Visit * Reason Onset Date Comments Medication Refill 01/08/2020 Encounter Details Date Type Department Care Team (Late st Contact Info) Description 01/08/2020 Refill [facility] Oncology and Hematology - [place] [address] [facility] [address] [place] [address] Milad Fields MD [address] [facility] [address] [place] [address] Other classical Hodgkin lymphoma of [...] file Legal Sex Female 3:46 AM MANAGER CALL Gender Identity Not on file Sexual Orientation Not on file documented as of this encounter Plan of Treatment Not on file documented as of this encounter Visit Diagnoses Diagnosis 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
--- OUTSIDE RECORDS SUMMARY | 2025-05-26 00:33 | XMS_ITS | Encounter Summary ---
Author Organization [facility] Address [address] [place] [address] Care Team Providers Care Laundry Housekeeping Aide Name Role Phone Conversion, History Primary Care [...] on file Legal Sex Female 3:46 AM LEARNING OFFICER Gender Identity Not on file Sexual Orientation Not on file documented as of this encounter Plan of Treatment Not on file documented as of this encounter Visit Diagnoses Diagnosis Supervision of other normal - Primary documented in this encounter Care Teams Laundry Housekeeping Aide Relationship Specialty Start Date End Date Conversion, History PCP - General 07/31/07 05/07/19 documented as of this encounter
--- OUTSIDE RECORDS SUMMARY | 2025-05-26 00:33 | XMS_ITS | Encounter Summary ---
Author Organization [facility] Address [address] [place] [address] Care Team Providers Care Automated Access Systems Technician Name Role Phone Conversion, History Primary Care [...] on file Legal Sex Female 3:46 AM QUALITY TECHNICIAN FIBERGLASS Gender Identity Not on file Sexual Orientation Not on file documented as of this encounter Plan of Treatment Not on file documented as of this encounter Visit Diagnoses Diagnosis Other antepartum hemorrhage, antepartum- Primary documented in this encounter Care Teams Automated Access Systems Technician Relationship Specialty Start Date End Date Conversion, History PCP - General 07/31/07 05/07/19 documented as of this encounter
--- OUTSIDE RECORDS SUMMARY | 2025-05-26 00:33 | XMS_ITS | Clinical Summary ---
Author Organization [facility] Address [facility] [place] [address] Care Team Providers Care Key Account Executive Name Role Phone Edward Mayen MD Primary Care Provider [phone] Allergies Active Allergy Reactions Criticality Noted Date [...] Comments Blood Pressure 122/89 10/06/2024 2:08 PM BIOLOGICAL SCIENCE TECHNICIAN Pulse 107 10/06/2024 2:08 PM BIOLOGICAL SCIENCE TECHNICIAN Temperature 36.4 C (97.5 F) 10/06/2024 10:58 AM BIOLOGICAL SCIENCE TECHNICIAN Respiratory Rate 18 10/06/2024 2:08 PM BIOLOGICAL SCIENCE TECHNICIAN Oxygen Saturation 100% 10/06/2024 2:08 PM BIOLOGICAL SCIENCE TECHNICIAN Inhaled Oxygen Concentration - - Weight 90.8 kg (200 lb 2.8 oz) 10/06/2024 10:58 AM BIOLOGICAL SCIENCE TECHNICIAN Height 160 cm (5' 3) 10/06/2024 10:58 AM BIOLOGICAL SCIENCE TECHNICIAN Body Mass Index 35.46 10/06/2024 10:58 AM BIOLOGICAL SCIENCE TECHNICIAN Plan of Treatment Health Maintenance Due Date [...] patient's age to complete this topic Insurance [facility] C/O PROVIDER SERVICES [employer] [id number] Care Teams Key Account Executive Relationship Specialty Start Date End Date Edward Mayen MD [address] [place] [address] PCP - General INTERNAL MEDICINE HEMATOLOGY & ONCOLOGY 08/14/24
--- OUTSIDE RECORDS SUMMARY | 2025-05-26 00:33 | XMS_ITS | Encounter Summary ---
Author Organization [facility] Address [address] [place] [address] Care Team Providers Care Inspector Grain Mill Products Name Role Phone Unavailable Primary Care Provider Unavailabl e Encounter Details Date Type Department Care Team (Late st Contact Info) Description 06/26/2019 Chart Note [facility] Radiation Therapy [address] [place] [phone] [place] [address] [place] [address] Social History Tobacco Use Types Packs/Day Years Used Date Smoking Tobacco: Every Day Cigarettes 0.5 20 Smokeless Tobacco: Never Alcohol Use Standard Drinks/Week Comments Not Currently 0 (1 standard drink = 0.6 oz pur e alcohol) Comments No Sex and Gender Information Value Date Recorded Sex Assigned at Not on file Legal Sex Female 3:46 AM PROOF COINS INSPECTOR Gender Identity Not on file Sexual Orientation Not on file documented as of this encounter Plan of Treatment Not on file documented as of this encounter Visit Diagnoses Not on filedocumented in this encounter
--- OUTSIDE RECORDS SUMMARY | 2025-05-26 00:33 | XMS_ITS | Encounter Summary ---
Author Organization [facility] Address [address] [place] [address] Care Team Providers Care Installation Tech Name Role Phone Conversion, History Primary Care [...] on file Legal Sex Female 3:46 AM BUSINESS ACCOUNT SPECIALIST Gender Identity Not on file Sexual Orientation Not on file documented as of this encounter Plan of Treatment Not on file documented as of this encounter Visit Diagnoses Diagnosis Other current maternal conditions classifiable elsewhere, antepartum- Primary documented in this encounter Care Teams Installation Tech Relationship Specialty Start Date End Date Conversion, History PCP - General 07/31/07 05/07/19 documented as of this encounter
--- OUTSIDE RECORDS SUMMARY | 2025-05-26 00:33 | XMS_ITS | Encounter Summary ---
Author Organization [facility] Address [address] [place] [address] Care Team Providers Care Picker Feeder Name Role Phone Conversion, History Primary Care Provider Leslye hopper Encounter Details Date Type Department Care Team (Late st Contact Info) Description 12/27/2001 Outpatient Historical [facility] Maternal and Ground Floor S [facility] [address] [place] [address] Josie Chen MD [address] [place] [address] Social History Tobacco Use Types Packs/Day Years Used Date Smoking Tobacco: Never Assessed Comments Unknown Sex and Gender Information Value Date Recorded Sex Assigned at Not on file Legal Sex Female 3:46 AM C T TECH Gender Identity Not on file Sexual Orientation Not on file documented as of this encounter Plan of Treatment Not on file documented as of this encounter Visit Diagnoses Not on filedocumented in this encounter Care Teams Picker Feeder Relationship Specialty Start Date End Date Conversion, History PCP - General 07/31/07 05/07/19 documented as of this encounter
--- OUTSIDE RECORDS SUMMARY | 2025-05-26 00:33 | XMS_ITS | Encounter Summary ---
Author Organization [facility] Address [address] [place] [address] Care Team Providers Care Ladies Attendant Name Role Phone Conversion, History Primary Care [...] file Legal Sex Female 3:46 AM MANAGER SYSTEMS Gender Identity Not on file Sexual Orientation Not on file documented as of this encounter Plan of Treatment Not on file documented as of this encounter Visit Diagnoses Diagnosis Transient hypertension of , with delivery- Primary documented in this encounter Care Teams Ladies Attendant Relationship Specialty Start Date End Date Conversion, History PCP - General 07/31/07 05/07/19 documented as of this encounter
--- OUTSIDE RECORDS SUMMARY | 2025-05-26 00:33 | XMS_ITS | Encounter Summary ---
Author Organization [facility] Address [address] [place] [address] Care Team Providers Care Sponge Buffer Name Role Phone Conversion, History Primary Care Provider Leslye hopper Encounter Details Date Type Department Care Team (Late st Contact Info) Description 07/19/2006 Emergency [facility] EMERGENCY RO[facility] Criselda Brand MD [address] [place] [address] [place] [address] Unspecified Conjunctivitis (Primary Dx) Social History Tobacco Use Types Packs/Day Years Used Date Smoking Tobacco: Never Assessed Comments Unknown Sex and Gender Information Value Date Recorded Sex Assigned at Not on file Legal Sex Female 3:46 AM PARTS LISTER Gender Identity Not on file Sexual Orientation Not on file documented as of this encounter Plan of Treatment Not on file documented as of this encounter Visit Diagnoses Diagnosis Conjunctivitis unspecified- Primary Conjunctivitis, unspecified documented in this encounter Care Teams Sponge Buffer Relationship Specialty Start Date End Date Conversion, History PCP - General 07/31/07 05/07/19 documented as of this encounter
--- OUTSIDE RECORDS SUMMARY | 2025-05-26 00:33 | XMS_ITS | Encounter Summary ---
Author Organization [facility] Address [address] [facility] [address] Care Team Providers Care Sap Project Manager Name Role Phone Unavailable Primary Care Provider Unavailabl e Encounter Details Date Type Department Care Team (Late st Contact Info) Description 04/26/2019 Lab Requisition [facility] Care Pathology Lab [address] [place] [address] Mirtha Aiken MD [address] [place] [address] Social History Tobacco Use Types Packs/Day Years Used Date Smoking Tobacco: Never Assessed Comments Unknown Sex and Gender Information Value Date Recorded Sex Assigned at Not on file Legal Sex Female 5:34 AM PATTERN AND CHAIN MAKER Gender Identity Not on file Sexual Orientation Not on file documented as of this encounter Plan of Treatment Not on file documented as of this encounter Procedures Procedure Name Priority Date/Time Associated Diagnosis Comments PATHOLOGY TISSUE Routine 04/24/2019 1:44 PM CDT documented in this encounter Results * PATHOLOGY TISSUE (04/24/2019 1:44 PM CDT) Case Report Surgical Pathology Report Case: [id number] Authorizing Provider: Mirtha Aiken MD Collected: 04/24/2019 01:44 PM Pathologist: Kaela Knapp MD Received: 04/26/2019 12:13 PM Specimen: Lymph Node Biopsy, [id number] 04/29/2019 9:01 AM CDT [facility] [...] appropriately reactive controls, is performed in the [facility] Department of Pathology. The large cells [...] Per report, flow cytometry ([facility] [address], [place] [address], [id number]) shows atypical findings with an increased proportion [...] correlation is required. KR 04/29/2019 9:01 AM [facility] Clinical History 38 year old woman with lymphadenopathy. 04/29/2019 9:01 AM [facility] Disclaimer The performance characteristics of all immunohistochemical and indirect immunofluorescence stains (if any) cited in this report were determined by the Histopathology Laboratory of [facility]. Some of these tests were developed by [...] the attending (teaching) pathologist. 04/29/2019 9:01 AM [facility] Embedded Images 04/29/2019 9:01 AM [facility] Pathology/Cytolo gy BIOPSY OF LYMPH NODE / Unknown 04/24/2019 1:44 PM CDT 04/26/2019 12:13 PM CDT us Mirtha Aiken MD LAB - PATHOLOGY/CYTOLOGY ORDERAB LES Final Result Performing Organization Address City/State/[facility] Co de Phone Number [facility] PATH[facility] LAB [address] [phone] documented in this encounter Visit Diagnoses Not on filedocumented in this encounter
--- OUTSIDE RECORDS SUMMARY | 2025-05-26 00:33 | XMS_ITS | Encounter Summary ---
Author Organization [facility] MICHELLE Henson [facility] Address [address] [place] [address] Care Team Providers Care Supervisor Of Officials Name Role Phone Unavailable Primary Care Provider Unavailabl e Reason for Visit * Reason Onset Date Comments Medication Refill 01/11/2020 Encounter Details Date Type Department Care Team (Late st Contact Info) Description 01/11/2020 Refill [facility] Oncology and Hematology - [place] [address] [facility] [address] [place] [address] Milad Fields MD [address] [facility] [address] [place] [address] Other classical Hodgkin lymphoma of [...] on file Legal Sex Female 3:46 AM EMPLOYMENT ADVISOR Gender Identity Not on file Sexual Orientation Not on file documented as of this encounter Plan of Treatment Not on file documented as of this encounter Visit Diagnoses Diagnosis 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
--- OUTSIDE RECORDS SUMMARY | 2025-05-26 00:33 | XMS_ITS | Encounter Summary ---
Author Organization [facility] Address [address] [place] [address] Care Team Providers Care Mine Superintendent Name Role Phone Conversion, History Primary Care [...] on file Legal Sex Female 3:46 AM MINE SAFETY DIRECTOR Gender Identity Not on file Sexual Orientation Not on file documented as of this encounter Plan of Treatment Not on file documented as of this encounter Visit Diagnoses Diagnosis Hemorrhage from placenta previa, with delivery- Primary documented in this encounter Care Teams Mine Superintendent Relationship Specialty Start Date End Date Conversion, History PCP - General 07/31/07 05/07/19 documented as of this encounter
--- OUTSIDE RECORDS SUMMARY | 2025-05-26 00:33 | XMS_ITS | Encounter Summary ---
Author Organization [facility] Address [address] [place] [address] Care Team Providers Care Overedge Machine Operator Name Role Phone Conversion, History Primary Care Provider Leslye hopper Encounter Details Date Type Department Care Team (Late st Contact Info) Description 05/03/2006 Outpatient Historical [facility] [address] [place] [address] [address] [place] [address] Deandre Grimaldo MD [address] [place] [address] [address] [place] [address] Social History Tobacco Use Types Packs/Day Years Used Date Smoking Tobacco: Never Assessed Comments Unknown Sex and Gender Information Value Date Recorded Sex Assigned at Not on file Legal Sex Female 3:46 AM MAMMOGRAPHY SUPERVISOR Gender Identity Not on file Sexual Orientation Not on file documented as of this encounter Plan of Treatment Not on file documented as of this encounter Visit Diagnoses Not on filedocumented in this encounter Care Teams Overedge Machine Operator Relationship Specialty Start Date End Date Conversion, History PCP - General 07/31/07 05/07/19 documented as of this encounter
--- OUTSIDE RECORDS SUMMARY | 2025-05-26 00:33 | XMS_ITS | Encounter Summary ---
Author Organization [facility] Address [address] [place] [address] Care Team Providers Care Network Security Analyst Name Role Phone Conversion, History Primary Care Provider Leslye hopper Encounter Details Date Type Department Care Team (Latest Contact Info) Description 05/12/2006 Outpatient Historical [facility] Nuvia Zapata MD [address] [place] [id number] Circumscribed Scleroderma (Primary Dx) Social History Tobacco Use Types Packs/Day Years Used Date Smoking Tobacco: Never Assessed Comments Unknown Sex and Gender Information Value Date Recorded Sex Assigned at Not on file Legal Sex Female 3:46 AM HEAT PLANT SPECIALIST Gender Identity Not on file Sexual Orientation Not on file documented as of this encounter Plan of Treatment Not on file documented as of this encounter Visit Diagnoses Diagnosis Circumscribed scleroderma- Primary documented in this encounter Care Teams Network Security Analyst Relationship Specialty Start Date End Date Conversion, History PCP - General 07/31/07 05/07/19 documented as of this encounter
--- OUTSIDE RECORDS SUMMARY | 2025-05-26 00:33 | XMS_ITS | Encounter Summary ---
Author Organization [facility] MICHELLE Henson [facility] Address [address] [place] [address] Care Team Providers Care Theatre Professor Name Role Phone Unavailable Primary Care Provider Unavailabl e Reason for Visit * Reason Onset Date Comments Medication Refill 01/12/2020 Encounter Details Date Type Department Care Team (Late st Contact Info) Description 01/12/2020 Refill [facility] Oncology and Hematology - [place] [address] [facility] [address] [place] [address] Milad Fields MD [address] [facility] [address] [place] [address] Other classical Hodgkin lymphoma of [...] on file Legal Sex Female 3:46 AM FOOD SERVICE Gender Identity Not on file Sexual Orientation Not on file documented as of this encounter Plan of Treatment Not on file documented as of this encounter Visit Diagnoses Diagnosis 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
--- OUTSIDE RECORDS SUMMARY | 2025-05-26 00:33 | XMS_ITS | Encounter Summary ---
Author Organization [facility] Address [address] [place] [address] Care Team Providers Care Healthcare Science Specialist Name Role Phone Conversion, History Primary Care Provider Leslye hopper Encounter Details Date Type Department Care Team (Latest Contact Info) Description 10/08/2001 Outpatient Historical [facility], [address] Mariano Urbina HEMORR EARLY PREG-ANTEPART (Primary Dx) Social History Tobacco Use Types Packs/Day Years Used Date Smoking Tobacco: Never Assessed Comments Unknown Sex and Gender Information Value Date Recorded Sex Assigned at Not on file Legal Sex Female 3:46 AM INTELLIGENCE OPERATIONS SPECIALIST Gender Identity Not on file Sexual Orientation Not on file documented as of this encounter Plan of Treatment Not on file documented as of this encounter Visit Diagnoses Diagnosis Unspecified hemorrhage in early , antepartum- Primary documented in this encounter Care Teams Healthcare Science Specialist Relationship Specialty Start Date End Date Conversion, History PCP - General 07/31/07 05/07/19 documented as of this encounter
--- OUTSIDE RECORDS SUMMARY | 2025-05-26 00:33 | XMS_ITS | Clinical Summary ---
Author Organization [facility] Address [address] [place] [address] Care Team Providers Care Superintendent Local Name Role Phone Unavailable Primary Care Provider Unavailabl e Source Comments [facility],non-owned Affiliates and Associated Physician Practices is amultiple site organization consisting of ambulatory clinics and hospital sitesin [place], [place], [place] and [place]. This disclosure is being madepursuant to the Care Everywhere program and may not contain all information available regarding this patient. Last updated 18.[facility] Social History Tobacco Use Types Packs/Day Years Used Date Smoking Tobacco: Never Assessed Comments Unknown Sex and Gender Information Value Date Recorded Sex Assigned at Not on file Legal Sex Female 5:34 AM LAUNDERER HAND Gender Identity Not on file Sexual Orientation [...] patient's age to complete this topic Insurance [facility]
--- OUTSIDE RECORDS SUMMARY | 2025-05-26 00:33 | XMS_ITS | Clinical Summary ---
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
--- OUTSIDE RECORDS SUMMARY | 2025-05-26 00:33 | XMS_ITS | Encounter Summary ---
Author Organization [facility] Address 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
--- OUTSIDE RECORDS SUMMARY | 2025-05-26 00:33 | XMS_ITS | Encounter Summary ---
Author Organization [facility] Address 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
[2025-05-26 00:53] VITALS: BP 120/74; PULSE 94; RESP 17; O2SAT 97
[2025-05-26 00:55] LABS: Add Urine Microscopic? NO; Appearance Urine Clear (Clear); Glucose Urine UA Negative (Negative); Leukocyte Esterase Ur Negative LEU/UL (Negative); Nitrate Urine Negative (Negative); Specific Grav Ur 1.022 (1.001-1.035)
--- NOTE | 2025-05-26 02:56 | ED.ABDPAIN ---
HPI - Abdominal Pain General Chief Complaint: Abdominal Pain Stated Complaint: pain under right breast goes to belly and leg Time Seen by Provider: 05/25/25 23:35 History of Present Illness HPI narrative: For the past few days, patient has noticed pain that starts in her right breast, right ribs. She has had a cholecystectomy already and this symptoms do feels slightly similar. Earlier today she started having some pain that went down her right buttock and down her leg, has never had this either, unsure if this is related. No nausea. No fevers or chills or swelling in her legs. Related Data Allergies Allergy/AdvReac Type Severity Reaction Status Date / Time Penicillins Allergy Severe Anaphylaxis Verified 01/04/23 19:29 cefazolin Allergy Intermediate Vomiting Verified 01/04/23 19:29 clindamycin Allergy Anaphylaxis Verified 01/04/23 19:29 Review of Systems Review of Systems: All systems reviewed & are unremarkable except as noted in HPI and below PMFSH Past Medical History Medical History (Updated 05/26/25 @ 03:17 by Ivy Hitchcock MD) Anxiety Right arm fracture Clavicle fracture Arthritis Kidney stones GERD (gastroesophageal reflux disease) Hodgkin lymphoma (~03/2019) Surgical History Surgical History History of arthroplasty of left knee H/O section H/O tubal ligation Hx of cholecystectomy Family History Family History Other Cerebrovascular accident Diabetes mellitus Family history of alcoholism Family history of arthritis Family history of cardiovascular disease Family history of elevated blood lipids Family history of malignant neoplasm of male breast Family history of malignant neoplasm of ovary Hypertension Social History Social History Smoking packs per day: 0.5 Smoking cigarettes per day: 10.0 Smoking status: Current every day smoker Alcohol intake: never Substance use: never Living arrangements: with family Occupation/Education: occupation Additional occupation/education comments: [employer] Gender identity (if verbalized by the patient): Male Exam Narrative: EXAMINATION OF ORGAN SYSTEMS/BODY AREAS: Constitutional: Vital signs per nursing GENERAL:[No acute distress, non-toxic appearing.] HEAD: Normal with no signs of head trauma. EYES: EOMI, conjunctiva normal ENT: Hearing grossly intact LUNGS: Nonlabored breathing. HEART: [Regular rate and rhythm] ABD: [Soft], [nontender to palpation] EXT: Normal range of motion SKIN: [No rashes or lesions.] NEURO: [Alert and oriented x 3. No gross focal sensory or strength deficits.] PSYCH: Normal affect Course Vital Signs Vital signs: Vital Signs Temperature 96.4 F L 05/25/25 23:20 Pulse Rate 109 H 05/25/25 23:20 Respiratory Rate 16 05/25/25 23:20 Blood Pressure 139/77 05/25/25 23:20 Pulse Oximetry 99 05/25/25 23:20 Oxygen Delivery Room Air 05/25/25 23:20 Temperature 98.3 F 05/25/25 23:33 Pulse Rate 96 05/26/25 03:18 Respiratory Rate 17 05/26/25 03:18 Blood Pressure 122/82 05/26/25 03:18 Pulse Oximetry 98 05/26/25 03:18 Oxygen Delivery Room Air 05/25/25 23:20 MDM - Abdominal Pain MDM Narrative Medical decision making narrative: Electronic medical record was reviewed. Patient presented to the ED with complaint of [abdominal pain on the right side, she also occasionally has some pain that runs down her right leg]. Vitals [were within acceptable limits]. Physical exam revealed soft abdomen without significant tenderness. History of cholecystectomy in the past. Based on the patient's history and physical exam, my differential includes but is not limited to [gastritis, gastroenteritis, pancreatitis, PE]. [IV access was established by nursing staff. Patient was given morphine]. CBC, BMP, lipase, LFTs, bilirubin and alk phos were obtained. Labs were pertinent for elevated white count. [Decision was made to obtain a CT-abdomen to evaluate for acute abdominal process. CT-abdomen per radiology interpretation is unremarkable for acute intra-abdominal process, no signs of hydronephrosis, cholecystitis, appendicitis.] It does show possible colitis and hepatic steatosis. These findings are discussed with the patient. On reevaluation, the patient states that they are feeling much better. There were no witnessed episodes of vomiting in the emergency department. They are not complaining of any new abdominal pain. Repeat examination did not show any significant guarding or rebound. No new tenderness. At this time I do not feel there is any further emergent treatment to be provided. The patient was given strict return precautions, if they are to develop any worsening abdominal pain, vomiting, or blood in the vomit they are to return to the emergency department immediately. Patient verbally acknowledges understanding these directions. [The patient was informed of the above diagnostic test findings.] They will be discharged home [with prescriptions]. They were advised to follow-up with PCP and Gastroenterology in 2 days. The patient feels that this is appropriate medical decision making and verbalizes an understanding of the discharge instructions. Lab Data 05/25/25 23:44 05/25/25 23:44 Labs: Lab Results 05/25/25 05/25/25 05/25/25 Range/Units 23:40 23:43 23:44 WBC 13.1 H (4.5-10.0) K/mm3 RBC 4.69 (4.2-5.4) M/mm3 Hgb 14.0 (12.0-15.0) g/dL Hct 43.5 (37.0-47.0) % MCV 92.8 (80-100) fl MCH 29.9 (26-34) pg MCHC 32.2 (32-36) g/dl RDW 14.3 (11.5-14.5) % Plt Count 289 (150-375) k/mm3 MPV 9.0 (7.4-10.4) fl Immature Gran % (Auto) 0.3 (0-0.5) % Neut % (Auto) 56.9 (45.5-73.1) % Lymph % (Auto) 35.6 (18.3-44.2) % [place] % (Auto) 5.6 (2.6-8.5) % Eos % (Auto) 1.1 (0-4.4) % Baso % (Auto) 0.5 (0.2-1.2) % Lymph # (Auto) 4.68 H (0.9-3.2) K/mm3 [place] # (Auto) 0.7 H (0.1-0.6) K/mm3 Eos # (Auto) 0.2 (0-0.3) K/mm3 Baso # (Auto) 0.1 (0.0-0.1) K/mm3 Abs Immat Gran (auto) 0.04 H (0.00-0.031) K/mm3 Absolute Neuts (auto) 7.5 H (1.3-6.7) K/mm3 Absolute Nucleated RBC 0.000 (0.0-0.012) K/mm3 Nucleated RBC % 0.0 (0.0-0.2) % D-Dimer 0.36 (<0.48) ug/mL Sodium 133 L (137-145) mmol/L Potassium 4.0 (3.4-5.0) mmol/L Chloride 102 (98-107) mmol/L Carbon Dioxide 25 (22-30) mmol/L Anion Gap 6 (4-12) mmol/L BUN 10 (7-17) mg/dL Creatinine 0.63 L (0.7-1.0) mg/dL Estim Creat Clear Calc 105 ml/min Estimated GFR > 60 (59 - ) Glucose 129 H (65-110) mg/dL Calcium 9.3 (8.4-10.2) mg/dL Total Bilirubin 0.3 (0.2-1.3) mg/dL AST 28 (14-36) U/L ALT 24 (6-35) U/L Alkaline Phosphatase 92 (38-126) U/L Total Protein 7.6 (6.3-8.2) g/dL Albumin 4.0 (3.5-5.1) g/dL Lipase 64 (23-300) U/L Urine Color Yellow (Yellow) Urine Appearance Clear (Clear) Urine pH 5.5 (5.0-9.0) Ur Specific [place] 1.022 (1.001-1.035) Urine Protein Negative (Negative) mg/dL Urine Glucose (UA) Negative (Negative) mg/dL Urine Ketones Negative (Negative) mg/dL Ur Blood (Man) Negative (Negative) Urine Nitrate Negative (Negative) Urine Bilirubin Negative (Negative) Urine Urobilinogen 1.0 (<2.0) mg/dL Leukocyte Esterase Rfl Negative (Negative) CESAR/UL POC Urine HCG, Qual (Negative) 05/25/25 Range/Units 23:53 WBC (4.5-10.0) K/mm3 RBC (4.2-5.4) M/mm3 Hgb (12.0-15.0) g/dL Hct (37.0-47.0) % MCV (80-100) fl MCH (26-34) pg MCHC (32-36) g/dl RDW (11.5-14.5) % Plt Count (150-375) k/mm3 MPV (7.4-10.4) fl Immature Gran % (Auto) (0-0.5) % Neut % (Auto) (45.5-73.1) % Lymph % (Auto) (18.3-44.2) % [place] % (Auto) (2.6-8.5) % Eos % (Auto) (0-4.4) % Baso % (Auto) (0.2-1.2) % Lymph # (Auto) (0.9-3.2) K/mm3 [place] # (Auto) (0.1-0.6) K/mm3 Eos # (Auto) (0-0.3) K/mm3 Baso # (Auto) (0.0-0.1) K/mm3 Abs Immat Gran (auto) (0.00-0.031) K/mm3 Absolute Neuts (auto) (1.3-6.7) K/mm3 Absolute Nucleated RBC (0.0-0.012) K/mm3 Nucleated RBC % (0.0-0.2) % D-Dimer (<0.48) ug/mL Sodium (137-145) mmol/L Potassium (3.4-5.0) mmol/L Chloride (98-107) mmol/L Carbon Dioxide (22-30) mmol/L Anion Gap (4-12) mmol/L BUN (7-17) mg/dL Creatinine (0.7-1.0) mg/dL Estim Creat Clear Calc ml/min Estimated GFR (59 - ) Glucose (65-110) mg/dL Calcium (8.4-10.2) mg/dL Total Bilirubin (0.2-1.3) mg/dL AST (14-36) U/L ALT (6-35) U/L Alkaline Phosphatase (38-126) U/L Total Protein (6.3-8.2) g/dL Albumin (3.5-5.1) g/dL Lipase (23-300) U/L Urine Color (Yellow) Urine Appearance (Clear) Urine pH (5.0-9.0) Ur Specific [place] (1.001-1.035) Urine Protein (Negative) mg/dL Urine Glucose (UA) (Negative) mg/dL Urine Ketones (Negative) mg/dL Ur Blood (Man) (Negative) Urine Nitrate (Negative) Urine Bilirubin (Negative) Urine Urobilinogen (<2.0) mg/dL Leukocyte Esterase Rfl (Negative) CESAR/UL POC Urine HCG, Qual Negative (Negative) Discharge Plan Discharge Clinical Impression: Abdominal pain, Colitis Patient Disposition: Home Condition: Stable Instructions: Non-Alcoholic Fatty Liver Disease (ED), Colitis (ED) Additional Instructions: Please follow up with your doctor and with the clinical staff anesthesiologist; you can always return for any further issues. Patient Language: Moroccan Prescriptions: New dicyclomine 20 mg tablet 20 mg PO TID PRN (Reason: abdominal pain) Qty: 30 0RF famotidine 20 mg tablet 20 mg PO DAILY Qty: 30 0RF dicyclomine 20 mg tablet 20 mg PO TID PRN (Reason: abdominal pain) Qty: 30 0RF No Action doxycycline hyclate 100 mg tablet 100 mg PO BID 7 Days Qty: 14 0RF doxycycline hyclate 100 mg capsule 100 mg PO BID 7 Days Qty: 14 0RF Follow-up/Referrals: Keshav Chavez MD [Physician] - 2 Days UNKNOWN,DOCTOR [Primary Care Provider] -
[2025-05-26 03:18] VITALS: BP 122/82; PULSE 96; RESP 17; O2SAT 98
== END 2025-05-26 03:26 | disposition home or self-care (01) ==
PROVIDERS: Emergency Provider Emergency Medicine
DX: K52.9 Noninfective gastroenteritis and colitis, unspecified (principal); K21.9 Gastro-esophageal reflux disease without esophagitis; F41.9 Anxiety disorder, unspecified; F17.210 Nicotine dependence, cigarettes, uncomplicated; Z96.652 Presence of left artificial knee joint; Z85.71 Personal history of Hodgkin lymphoma; Z87.442 Personal history of urinary calculi; Z90.49 Acquired absence of other specified parts of digestive tract; K76.0 Fatty (change of) liver, not elsewhere classified
CPT/HCPCS: 36415; 74177; 80053; 81003; 81025; 83690; 85025; 85380; 96374; 99284; J2270; Q9967